=== PATIENT | female | born 1965 | race Caucasian/White ===

== ENCOUNTER 2023-06-19 01:58 | Emergency (ER) | payer OTHER, SELFPAY ==
[2023-06-19 02:12] VITALS: BP 163/98; PULSE 81; TEMP 37; O2SAT 98; BMI 22.7
--- NOTE | 2023-06-19 02:46 | ED_ITS ---
HPI HPI - General Adult General Chief complaint: Headache Stated complaint: HEADACHE Time Seen by Provider: 06/19/23 02:40 Source: patient Mode of arrival: walk-in History of Present Illness HPI narrative: presents complaining of migraine. Similar to past migraine. pain behind the right eye. nauseated but has not vomited. no abdominal pain. Neck is sore but not stiff. No paresthesia Related Data Home Medications ?Medication ?Instructions ?Recorded ?Confirmed hyoscyamine 0.15 mg tablet mg PO QID PRN dyspepsia 06/19/23 minocycline 100 mg capsule 100 mg PO DAILY PRN infection 06/19/23 06/19/23 simvastatin 20 mg tablet 20 mg PO QPM 06/19/23 06/19/23 Allergies Allergy/AdvReac Type Severity Reaction Status Date / Time eluxadoline [From Viberzi] Allergy Mild Nausea Verified 06/19/23 02:22 levofloxacin Allergy Mild Hallucinati Verified 06/19/23 02:22 ng sulfamethoxazole Allergy Mild Hives Verified 06/19/23 02:22 [From Bactrim] tramadol Allergy Mild Palpitation Verified 06/19/23 02:22 s trimethoprim [From Bactrim] Allergy Mild Hives Verified 06/19/23 02:22 Opioid HPI Opioid Management Most Recent Opioid Data: No Data to Display Review of Systems ROS Status of ROS 10 or more systems reviewed and unremark able except as noted in history and below Exam Constitutional Vital Signs, click to edit/add: Last Vital Signs Temp 98.6 F 06/19/23 02:12 Pulse 81 06/19/23 02:12 Resp 16 06/19/23 02:12 BP 163/98 H 06/19/23 02:12 Pulse Ox 98 06/19/23 02:12 O2 Del Method Room Air 06/19/23 02:12 Common normals: no apparent distress, average body habitus, oriented x3, no limitations, healthy appearing, alert and well nourished [facility] Common normals: normocephalic and head/scalp atraumatic Eye Common normals: PERRL, EOMs intact bilaterally and conjunctivae normal Respiratory Common normals: normal respiratory effort, no retractions, no use of accessory muscles and clear to auscultation bilaterally Cardio Common normals: regular rate, regular rhythm, S1 normal heart sound and S2 normal heart sound GI Common normals: Normal to inspection, nondistended, normoactive bowel sounds present, soft to palpation and non-tender Extremity Common normals: normal to inspection and full ROM Neuro Common normals: oriented x3, CN's II-XII intact bilaterally, moves all extremities and no focal motor deficits Psych Appearance: grossly normal Course Vital Signs Vital signs: Vital Signs Temperature 98.6 F 06/19/23 02:12 Pulse Rate 81 06/19/23 02:12 Respiratory Rate 16 06/19/23 02:12 Blood Pressure 163/98 H 06/19/23 02:12 Pulse Oximetry 98 06/19/23 02:12 Oxygen Delivery Method Room Air 06/19/23 02:12 Temperature 98.6 F 06/19/23 02:12 Pulse Rate 81 06/19/23 02:12 Respiratory Rate 16 06/19/23 02:12 Blood Pressure 163/98 H 06/19/23 02:12 Pulse Oximetry 98 06/19/23 02:12 Oxygen Delivery Method Room Air 06/19/23 02:12 Medical Decision Making MDM Narrative Medical decision making narrative: patient presents with migraine headache. Starting to feel better after treatment. Will continue to observe and she will likely be discharged in the next 1/2 as she continue to improve. patient's states the patient was confused and would ask same question. Patient in no distress. No focal neuro findings. CTbrain ordered due to her husbands concerns. CT brain neg. Patient re examined and headache improved. she is AxOx4. 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 Husbands wants her to rest at home today and is requesting work note. Transient confusion likely side effect of Reglan Discharge Plan Discharge Stand Alone Forms: Portal Instructions Chief Complaint: Headache Clinical Impression: Migraine Patient Disposition: Home, Self-Care Prescriptions / Home Meds: No Action minocycline 100 mg capsule 100 mg PO DAILY PRN (Reason: infection) simvastatin 20 mg tablet 20 mg PO QPM hyoscyamine 0.15 mg tablet PO QID PRN (Reason: dyspepsia) Print Language: Irish Instructions: Migraine Headache (ED) Referrals: Cosme Roth MD [Primary Care Provider] - 1 week
[2023-06-19] MEDS: METOCLOPRAMIDE HCL 10 MG/2 ML VIAL IVP (03:17)
[2023-06-19] MEDS: DIPHENHYDRAMINE HCL 50 MG/ML (1ML) VIAL IV (03:17)
[2023-06-19] MEDS: METHYLPREDNISOLONE SOD SUCC PF 125 MG/2 ML VIAL IVP (03:17)
--- NOTE | 2023-06-19 04:36 | CT_ITS ---
The [address] [address] Patient Name: ELSIE FRANCISCO MRN: [id number] date: 1965 Sex: F Assigned Patient Location: ER Current Patient Location: ER Accession/Order Number: [id number] Exam Date: 06/19/2023 04:47 Report Date: 06/19/2023 05:11 At the request of: JANNET BOBO Procedure: CT head/brain wo con INDICATION: 58 years old; Female. Headache. History of migraines. New-onset of headache since 5:00 PM yesterday. Right eye scotoma. Nausea. Acute short-term memory loss after medication for 30 minutes. TECHNIQUE: CT Head (ax/cor/sag reformats). Ionizing radiation dose reduced via iterative reconstruction/FBP blend and body size kV/mA adjustment. Comparison: None FINDINGS: POSTOPERATIVE CHANGES: None. BRAIN PARENCHYMA: No intraparenchymal or extra-axial hemorrhage. No mass effect. No midline shift or herniation. Normal blake/white differentiation. VENTRICLES/EXTRA-AXIAL SPACES: Normal for patient's age. SINUSES/MASTOIDS: Lacelike secretions are present within the frontal sinus on the left. Remaining visualized sinuses are clear although the ethmoid and maxillary sinuses are not completely included. Mastoids and middle ears are clear. MSK: No displaced or depressed calvarial fracture. OTHER: No hyperdense intraluminal thrombus. CT/CT head/brain wo con IMPRESSION: 1. No acute intracranial abnormality. No hemorrhage or mass effect. If there is continued suspicion for the presence of intracranial pathology, recommend further evaluation with MRI including diffusion imaging. Electronically authenticated by: LENO CHANG Date: 06/19/2023 05:11
--- NOTE | 2023-06-19 04:41 | PC.NURSE ---
This nurse went into check on pt, per pt keeps repeating herself and asking why are we? , I have a headache , and I don't have insurance . Physician notified, CT of head ordered at this time. and pt updated at this time.
[2023-06-19 05:49] VITALS: BP 128/64; PULSE 72; O2SAT 99
== END 2023-06-19 05:51 | disposition home or self-care (01) ==
PROVIDERS: Emergency Provider Internal Medicine; PCP Family Medicine
DX: G43.909 Migraine, unspecified, not intractable, without status migrainosus (principal); R41.0 Disorientation, unspecified
CPT/HCPCS: 70450; 96374; 96375; 99284; J2919

== ENCOUNTER 2023-07-07 07:46 | Outpatient (OUT) | payer OTHER, SELFPAY ==
--- OUTSIDE RECORDS SUMMARY | 2023-07-07 07:50 | XMS_ITS ---
Patient Summarization (C-CDA 2.1 CCD) Created on: July 07, 2023 ANAMARIAUNRULYSHAYE Montanez : 1965 Sex: Female Author Organization Sample organization Care Team Providers Care Car Repair Supervisor Name Role Phone KIARA, JEISON Unavailable Unavailable KIARA, JEISON Unavailable Unavailable HOY, TYRONE Unavailable Unavailable KIARA, JEISON Unavailable Unavailable KIARA, JEISON Unavailable Unavailable HOY, TYRONE Unavailable Unavailable HOY, DR HANSEN Admitting Unavailable HOY, DR HANSEN Attending Unavailable HOY, DR HANSEN Primary Care Unavailable HOY, DR HANSEN Consulting Unavailable WEST, DR SONYA Beth Consulting Unavailable HOY, DR HANSEN Admitting Unavailable HOY, DR HANSEN Attending Unavailable HOY, DR HANSEN Primary Care Unavailable HOY, DR HANSEN Consulting Unavailable WEST, DR SONYA Beth Consulting Unavailable HOY, DR HANSEN Admitting Unavailable HOY, DR HANSEN Attending Unavailable HOY, DR HANSEN Primary Care Unavailable HOY, DR HANSEN Consulting Unavailable ZIEBER, DR BEN Beasley Consulting Unavailable HOY, DR HANSEN Admitting Unavailable HOY, DR HANSEN Attending Unavailable HOY, DR HANSEN Primary Care Unavailable HOY, DR HANSEN Consulting Unavailable ZIEBER, DR BEN Beasley Consulting Unavailable HOY, DR HANSEN Admitting Unavailable HOY, DR HANSEN Attending Unavailable HOY, DR HANSEN Primary Care Unavailable HOY, DR HANSEN Consulting Unavailable WEST, DR SONYA Beth Consulting Unavailable Sonya Palomo Unavailable Nelson Vann Unavailable JAMIA DELEON Attending Unavailable JAMIA DELEON Referring Unavailable Allergies Allergy Classification Reported Allergen(s) Allergy Type Date of Onset Reaction(s) Facility (2 sources) Iodine; Translations: [iodine] Drug Allergy 09-08-19 15 [facility] Repository (8 sources) levoFLOXacin; Translations: [levoFLOXacin] Drug Allergy AO, [facility] Repository (2 sources) Sulfamethoxazole / Trimethoprim; Translations: [Bactrim] Drug Allergy 01-15-20 [facility] Repository (7 sources) Sulfamethoxazole / Trimethoprim Drug Allergy Unknown [facility] Other Encounters Encounter Date Encounter Type Care Provider Facility Start: 01-16-2023 End: 01-17-2023 ambulatory JAMIA JASONO Not Available Start: 01-12-2023 End: 01-13-2023 ambulatory JAMIA Mckeon FLORO Not Available Start: 11-22-2021 End: 11-22-2021 ambulatory Sonya Palomo Other [facility] Other Start: 11-22-2021 Telephone encounter Sonya Palomo [facility] Start: 04-23-2021 End: 04-24-[address] TYRONE GEORGE Facility:[facility] Start: 04-21-2021 End: 04-21-2021 ambulatory Sonya Palomo Other [facility] Other Start: 04-21-2021 Telephone encounter Sonya Palomo [facility] Start: 04-07-2021 End: 04-08-[address] TYRONE GEORGE Facility:[facility] Start: 01-28-2021 End: 01-28-2021 ambulatory Sonya Palomo Other [facility] Other Start: 01-28-2021 Telephone encounter Sonya Palomo [facility] Start: 01-07-2021 End: 01-07-2021 ambulatory Sonya Palomo Other [facility] Other Start: 01-07-2021 Telephone encounter Sonya Paizkes [facility] Start: 12-28-2020 End: 12-28-2020 ambulatory Sonya Palomo Other [facility] Other Start: 12-28-2020 Telephone encounter Sonya Hykes [facility] Start: 12-16-2020 End: 12-16-2020 ambulatory Sonya Palomo Other [facility] Other Start: 12-16-2020 Office outpatient visit 25 minutes Sonya Paizirineo [facility] Start: 09-19-2020 End: 09-20-[address] TYRONE GEORGE Facility:[facility] Start: 08-13-2020 End: 08-14-[address] TYRONE GEORGE Facility:[facility] Start: 08-05-2020 Encounter for genera l adult medical examination without abnormal findings DR TYRONE GEORGE [facility] Start: 07-31-2020 End: 08-01-[address] TYRONE GEORGE Facility:[facility] Start: 07-31-2020 End: 08-01-2020 Encounter for general adult medical examination without abnormal findings DR TYRONE GEORGE Facility:[facility] Start: 12-06-2017 End: 12-06-2017 Patient encounter procedure [facility] Facility:[facility] Start: 11-14-2017 End: 11-16-2017 Patient encounter procedure JEISON PACE Facility:[facility] Medications Current Medications Medication Drug Class(es) Dates Sig (Normalized) Sig (Original) amylase 287880 unt / lipase 69376 unt / protease 850448 unt delayed release oral capsule (6 sources) Start: 12-29-2020 take 2 capsules by mouth three times daily at mealtime Zenpep 28095-091989 UNIT 2 CAPSULES Orally THREE TIMES A DAY WITH MEALS for 90 days Dec, Active chlordiazePOXIDE hydrochloride 5 mg / clidinium bromide 2.5 mg oral capsule (4 sources) Anticholinergic, Benzodiazepine Start: 01-28-2021 take 1 capsule by mouth every twelve hours Librax 5-2.5 MG 1 CAPSULE Orally TWICE A DAY for 30 day(s) Jan, Active dicyclomine hydrochloride 20 mg oral tablet (7 sources) Anticholinergic Start: 11-12-2020 take 1 tablet by mouth every twelve hours Dicyclomine HCl 20 MG 1 tablet Orally TWICE A DAY for 30 day(s) Nov, Active minocycline 100 mg oral capsule (7 sources) Tetracycline-class Drug take 1 capsule by mouth every twelve hours as needed Minocycline HCl 100 MG 1 capsule Orally every 12 hrs PRN Active predniSONE 20 mg oral tablet (7 sources) Start: 12-16-2020 take 1 tablet by mouth every twenty-four hours predniSONE 20 MG 1 tablet Orally Once a day for 14 day(s) Dec, Active simvastatin 20 mg oral tablet (7 sources) HMG-CoA Reductase Inhibitor take 1 tablet by mouth every twenty-four hours Simvastatin 20 MG 1 tablet in the evening Orally Once a day Active Completed/Discontinued Medications Medication Drug Class(es) Dates Sig (Normalized) Sig (Original) 12 hr hyoscyamine sulfate 0.375 mg extended release oral tablet (14 sources) Start: 10-21-2020 take 1 tablet by mouth every twelve hours Hyoscyamine Sulfate ER 0.375 MG 1 tablet Orally every 12 hrs for 30 day(s) Oct, Not-Taking Hyoscyamine Sulf ate 0.125 MG 1 tablet under the tongue and allow to dissolve as needed Sublingual PRN Not-Taking Payers Date Payer Category Payer Private Health Insurance [id number] 2017 Self-pay [employer] 2017 Unknown [id number] 1965 Unknown [id number] 2.16.84 [id number] 1965 Unknown [id number] 2.16.84 [id number] 1965 Unknown [id number] 2.16.84 [id number] 1965 Unknown [id number] 2.16.84 [id number] 1965 Unknown [id number] 2.16.84 [id number] 1965 Unknown [id number] 2.16.840 .[id number] 1965 Unknown [id number] 2.16.840 .[id number] 1965 Unknown [id number] 2.16.84 [id number] 1965 Unknown [id number] 2.16.84 [id number] 1960 Private Health Insurance [id number] Problems Active Problems Problem Classification Problem Date Documented Da te Episodic/Chronic Diverticulosis and diverticulitis (7 sources) Diverticulitis; Translations: [Diverticulitis of intestine, part unspecified, without perforation or abscess without bleeding] Chronic Other gastrointestinal disorders (7 sources) Irritable bowel syndrome with diarrhea; Translations: [Irritable bowel syndrome with diarrhea] Chronic Other gastrointestinal disorders (7 sources) Irritable bowel syndrome; Translations: [Irritable bowel syndrome without diarrhea] Chronic Other gastrointestinal disorders (1 source) Irritable bowel syndrome with diarrhea Onset: 12-16-2020 Resolved: 12-16-2020 Chronic Other gastrointestinal disorders (7 sources) Incontinence of feces; Translations: [Full incontinence of feces] Episodic Spondylosis; intervertebral disc disorders; other back problems (1 source) Other cervical disc degeneration, unspecified cervical region; Translations: [OTH CERV DISC DEGENERATION UNS CERV] Onset: 04-28-2021 Chronic Spondylosis; intervertebral disc disorders; other back problems (5 sources) Radiculopathy, cervical region; Translations: [Cervicalgia] Onset: 04-23-2021 Episodic Past or Other Problems Problem Classification Problem Date Documented Da te Episodic/Chronic Abdominal pain (6 sources) Left upper quadrant pain; Translations: [Right upper quadrant pain] Onset: 08-05-2020 Resolved: 12-16-2020 Episodic Other gastrointestinal disorders (1 source) Full incontinence of feces Onset: 12-16-2020 Resolved: 12-16-2020 Episodic Other lower respiratory disease (4 sources) Dyspnea, unspecified; Translations: [DYSPNEA UNSPECIFIED] Onset: 08-13-2020 Episodic Results Test Name Value Interpretation Reference Range Facility BI MAMMOGRAM SCREENING TOMOS RICHARD BILATERALon 01-16-2023 BI MAMMOGRAM SCREENING TOMOSYNTHESIS BILATERAL This is a summary report. The complete report is available in the patient's medical record. If you cannot access the medical record, please contact the sending organization for a detailed fax or copy. EXAMINATION: BI MAMMOGRAM SCREENING TOMOSYNTHESIS BILATERAL CLINICAL HISTORY: breast cancer screening COMPARISON: There are no previous mammograms available for comparison. RESULT: Digital mammography and 3D tomosynthesis of bilateral breasts was performed. There are scattered areas of fibroglandular density. There is no suspicious mass, asymmetry, architectural distortion, or calcification. Left central breast posterior depth biopsy clips. Typically benign calcifications. IMPRESSION: BIRADS 2 - Benign. Follow-up: Routine Screening Mamm . Board Certified Radiologists. Accredited by the ACR and FDA. MAMMOGRAPHY IS VERY IMPORTANT TO YOUR HEALTH. THE [place] [employer] GUIDELINES RECOMMEND THAT WOMEN 40 YEARS OF AGE AND OLDER SHOULD HAVE A MAMMOGRAM EVERY YEAR. A REMINDER LETTER WILL BE SENT AT THE APPROPRIATE TIME. THIS FACILITY UTILIZES A REMINDER SYSTEM TO ENSURE ALL PATIENTS RECEIVE REMINDER NOTIFICATIONS AT THE APPROPRIATE TIME BASED ON THE RECOMMENDATIONS OF THIS EXAM. THIS INCLUDES REMINDERS FOR ROUTINE SCREENING MAMMOGRAMS, DIAGNOSTIC MAMMOGRAMS IN WHICH THE PATIENT IS ASKED TO RETURN FOR ADDITIONAL VIEWS, OR OTHER BREAST IMAGING INTERVENTIONS WHEN APPROPRIATE. THE PATIENT WILL BE PLACED IN THE APPROPRIATE REMINDER SYSTEM INCLUDING A REMINDER AT THE APPROPRIATE TIME FOR ANY PENDING ADDITIONAL VIEWS. TRANSCRIBED BY: ELECTRONICALLY SIGNED BY: Cristobal Maxwell MD Normal Not Available MRI CSPINE WO CONon 04-24-19 MRI CSPINE WO CON EXAMINATION: MRI CSP INE WO CON HISTORY: Cervical radiculopathy COMPARISON: 04/07/2021 plain x-ray TECHNIQUE: A variety of imaging planes and parameters were utilized for visualization of suspected pathology. FINDINGS: CRANIOCERVICAL AREA: Normal foramen magnum with no Chiari malformation. PARASPINAL AREA: Normal with no visible mass. BONES: Normal alignment with no acute fracture or spondylolisthesis. No bone edema. Motion artifact does limit the exam. CORD: Normal caliber, contour, and signal intensity. CERVICAL DISC LEVELS: C2-C3: No significant disc/facet abnormality, spinal stenosis, or foraminal stenosis. C3-C4: No significant disc/facet abnormality, spinal stenosis, or foraminal stenosis. C4-C5: Early degenerative disc disease is present without focal protrusion or neural impingement. C5-C6: Disc space narrowing and disc desiccation. Moderate right foraminal disc/osteophyte complex best seen on axial image 19, sagittal image #10. No central canal or left foraminal stenosis. Mild narrowing of the inferior right foramen C6-C7: No significant disc/facet abnormality, spinal stenosis, or foraminal stenosis. C7-T1:. No significant disc/facet abnormality, spinal stenosis, or foraminal stenosis. IMPRESSION: Degenerative changes C5-C6 with mild narrowing of the right neural foramen Electronically authenticated by: SONYA BILLINGS Date: 2021-04-23 14:24 Normal [facility] XR CSPINE MIN 4 VIEWSon 03 XR CSPINE MIN 4 VIEWS EXAMINATION: XR CSPINE MIN 4 VIEWS HISTORY: Cervical radiculopathy ; chronic posterior neck pain COMPARISON: No relevant comparison available. FINDINGS: BONES: Slight reversal of the normal lordotic curvature involving the mid cervical spine. No fracture or significant spondylolisthesis. Mild degenerative facet arthropathy C3-4 through C6-7 bilaterally. DISC SPACES: Mild narrowing C5-6. PARASPINOUS: Negative. No paraspinous abnormality is seen. OTHER: Negative. IMPRESSION: 1. Multilevel mild degenerative changes. Consider MRI for further evaluation. Electronically authenticated by: BEN GALLAGHER Date: 2021-04-07 17:36 Normal [facility] 11-05-2020 L ------- Specimen: [id number] Received: 11/05/20 Status: PING Martinez Num: [id number] Spec Type: Surgical Subm Dr: Sonya Palomo Jr, DO Tissues: A Colon Biopsy (RANDOM COLON) Procedures: HE Stain/2, Gross/Micro L4 Patient Age/Sex Location Account Attending Physician Shaye Grimaldo 55/F [id number] Sonya Palomo Jr, DO SPEC NUM: [id number] RECD: 11/05/20 STATUS: PING MARTINEZ NUM: [id number] MEL: 11/05/20- [facility] DR: Sonya Palomo Jr, DO ENTERED: 11/05/20 [facility] DR: GUS TYPE: Surgical DEPT: S ENTERED BY: [id number] RECV BY: [id number] ORDERED: HE Stain/2, Gross/Micro L4 ORDERED: HE Stain/2, Gross/Micro L4 Pathological Diagnosis Colon, random biopsy: - Benign colonic mucosa with lymphoid aggregate and no significant histopathology. - No microscopic colitis, cryptitis or granulomas identified. Clinical Information Fecal incontinence, diarrhea Gross Description Received in formalin labeled with the patient's name, number and random colon rule out microscopic colitis is a 0.4 cm amos tissue fragment. Entirely submitted in one cassette labeled A1. (/) Microscopic Description Two glass slides with H E stained material have been examined. The microscopic findings support the above pathologic diagnosis. CPT Codes 58569 Specimen: [id number] Received: 11/05/20 Status: PING Martinez Num: [id number] Spec Type: Surgical Subm Dr: Sonya Palomo Jr, DO Tissues: A Colon Biopsy (RANDOM COLON) Procedures: HE Stain/2, Gross/Micro L4 Patient: Shaye Grimaldo [id number] (Continued) Signed (signature on file) Marcos Bennett MD 11/06/20 [facility] COVID-19 Antigenon 1 COVID-19 Antigen Healthcare Worker?: N Brynn Reference Brynn Reference Negative SARS-CoV+SARS-CoV-2 (COVID-19) Ag [Presence] in Respiratory specimen by Rapid immunoassay Negative for SARS Antigen by ÓSCAR COVID19 Blank Space Brynn Disclaimer Negative results, from patients with symptom Brynn Disclaimer onset beyond five days, should be treated as Brynn Disclaimer presumptive and confirmation with a molecular Brynn Disclaimer assay, if necessary, for patient management, Brynn Disclaimer may be performed. Negative results do not rule Brynn Disclaimer out COVID-19 and should not be used as the sole Brynn Disclaimer basis for treatment or patient management Brynn Disclaimer decisions, including infection control decisions. Brynn Disclaimer Negative results should be considered in the Brynn Disclaimer context of a patient's recent exposures, history Brynn Disclaimer and the presence of clinical signs and symptoms Brynn Disclaimer consistent with COVID-19. COVID19 Blank Space Brynn Disclaimer The Brynn SARS Antigen ÓSCAR does not differentiate Brynn Disclaimer between SARS-CoV and SARS-CoV-2. COVID19 Blank Space Brynn Disclaimer This test was developed and its performance Brynn Disclaimer characteristic determined by [email or web address] and Brynn Disclaimer validated at [facility]. This Brynn Disclaimer test has not been FDA cleared or approved. This Brynn Disclaimer test has been authorized by FDA under an Emergency Use Brynn Disclaimer Authorization (EUA). This test has been validated Brynn Disclaimer in accordance with the FDA's Guidance Document (Policy Brynn Disclaimer for Diagnostics Testing in Laboratories Certified to Brynn Disclaimer Perform High Complexity Testing under CLIA prior to Brynn Disclaimer Emergency Use Authorization for Coronavirus Brynn Disclaimer isease-2019 during the Public Health Emergency) Brynn Disclaimer issued on May 09, 2019. This test is only authorized Brynn Disclaimer for the duration of time the declaration that Brynn Disclaimer circumstances exist justifying the authorization of Brynn Disclaimer the emergency use of in vitro diagnostic tests for Brynn Disclaimer detection of SARS-CoV-2 virus and/or diagnosis of Brynn Disclaimer COVID-19 infection under section 564(b)(1) of the Brynn Disclaimer Act, 21 U.S.C. 360bbb-3(b)(1), unless the Brynn Disclaimer authorization is terminated or revoked sooner. PERFORMED BY: [place] [address] PATHOLOGIST INTERVIEWING CLERK NORMA FRAGA M.D. Normal [facility] Comment on above: Performed By: #### S FAVIAN WASHINGTONID-19 BRYNN #### [address] Brynn Ag Negativeon 11-04-19 21 Brynn Ag Negative Negative Normal Negative [facility] Comment on above: Result Comment: This is a duplicate Brynn SARS Antigen (ÓSCAR) result to be used for statistical tracking purpose only. PERFORMED BY: [place] [address] PATHOLOGIST INTERVIEWING CLERK NORMA FRAGA M.D. Performed By: #### S OFPAMELA COVID-19 BRYNN #### [address] ABD/PELV WO W CONon 09-21 CT ABD/PELV WO W CON EXAMINATION: CT ABD/PELV WO W CON HISTORY: Left upper quadrant pain , left lower quadrant pain, rectal incontinence COMPARISON: No relevant comparison available. TECHNIQUE: Axial, Coronal, and Sagittal images were created without and with IV contrast. Dose reduction techniques were achieved by using automated exposure control and/or adjustment of mA and/or kV according to patient size and/or use of iterative reconstruction technique. FINDINGS: LUNG BASES: No visible pulmonary or pleural disease. LIVER: No enlargement, atrophy, abnormal density, or significant focal lesion. BILIARY: No dilatation or calcification. PANCREAS: No lesion, fluid collection, ductal dilatation, or atrophy. SPLEEN: No enlargement or focal lesion. ADRENALS: No mass or enlargement. KIDNEYS: No mass, obstruction, or calcification. BOWEL/MESENTERY: Mild diverticulosis of the distal colon without acute inflammatory changes. No visible mass, obstruction, or bowel wall thickening. AORTA/VASCULAR: No aneurysm or dissection. RETROPERITONEUM: No mass or adenopathy. LYMPH NODES: No adenopathy. URINARY BLADDER: No visible focal wall thickening, lesion, or calculus. PELVIC ORGANS: No visible mass. Pelvic organs appropriate for patient age. ABDOMINAL WALL: No mass or hernia. BONES: No bony lesion or fracture. OTHER: Negative. IMPRESSION: 1. No appreciable abnormality to account for the patient's symptoms. 2. Mild colonic diverticulosis without acute diverticulitis. Electronically authenticated by: BEN GALLAGHER Date: 2020-09-21 08:15 Normal [facility] NM STRESS/REST MULTIon 08-13 NM STRESS/REST MULTI Patient: SHAYE GRIMALDO Exam Date: 08/13/2020 : 1965 Gender:F Ordering : DR TYRONE GEORGE . Admission #: [id number] Family : Order #: [id number] CLICK HERE TO VIEW EXAM RADIOLOGY REPORT PROCEDURE: RADIONUCLIDE IMAGING STRESS/REST MULTI COMPARISON: None. INDICATIONS: Dyspnea TECHNIQUE: Exam Description: Stress/Rest one day protocol gated SPECT Rest Imagin.8 mCi Tc-99m Cardiolite IV on 08/13/2020 Stress Imaging 29.5 mCi Tc-99m Cardiolite IV on 08/13/2020 Exercise Protocol: Nelson Heart Rate (bpm): Rest: 79 Max: 140 PMHR: 85 Blood Pressure: Rest: 136/84 Max: 178/88 Exercise Time: Minutes: 7 Seconds: 00 Stage Reached: Stage: 3 Mets 7.0 Symptoms: Rest and peak stress ECG findings were normal and the exercise portion of the study was normal per attending physician Dr. Kenny Keys . For more details please see separate cardiac stress test report. FINDINGS: QUALITY OF STUDY: Excellent. PERFUSION DEFECT: None. LOCATION: N/A SIZE: N/A. SEVERITY: N/A. TYPE: N/A. WALL MOTION: LV SIZE: Normal. 38 mL. TID / TCD: None; 0.9 LVEF: Normal. Calculated EF 93%. SUMMARY: Myocardial perfusion imaging study is NORMAL. CONCLUSION: 1. Normal myocardial perfusion scan 2. Normal exercise test Dictated by: Sonya Billings MD on 08/13/2020 at 15:35 Approved by: Sonya Billings MD on 08/13/2020 at 15:36 Normal [facility] INSULINon 08-01-2020 Insulin 13.3 uIU/mL Normal 2.6-24.9 [facility] Comment on above: Performed By: #### T SH, T7, LIPID, CMP #### [facility] [address] [place] [address] Randellranjit Martinez CBC AUTO DIFFon 07-31-2020 BASO # 0.1 103/ul Normal 0.0-0.1 [facility] Comment on above: Performed By: #### T SH, T7, LIPID, CMP #### [facility] [address] [place] [address] Randellranjit Martinez Basophils/100 WBC (Bld) 1.2 % Normal 0.2-2.0 [facility] Comment on above: Performed By: #### T SH, T7, LIPID, CMP #### [facility] [address] [place] [address] Randell Michelle EO # 0.2 103/ul Normal 0.0-0.7 [facility] Comment on above: Performed By: #### T SH, T7, LIPID, CMP #### [facility] [address] [place] [address] Randellranjit Martinez Eosinophils/100 WBC (Bld) 2.5 % Normal 0.9-7.0 [facility] Comment on above: Performed By: #### T SH, T7, LIPID, CMP #### [facility] [address] [place] [address] Randellranjit Martinez Erythrocyte distribution width (RBC) [Ratio] 12.0 % Normal 11.0-15.0 [facility] Comment on above: Performed By: #### T SH, T7, LIPID, CMP #### [facility] [address] [place] [address] Randellranjit Martinez Hematocrit (Bld) [Volume fraction] 41.4 % Normal 36.0-48.0 [facility] Comment on above: Performed By: #### T SH, T7, LIPID, CMP #### [facility] [address] [place] [address] Randell Michelle Hemoglobin (Bld) [Mass/Vol] 13.6 g/dL Normal 12.0-16.0 [facility] Comment on above: Performed By: #### T SH, T7, LIPID, CMP #### [facility] [address] [address] Randell Michelle IG # 0.02 10e3/ul Normal 0.00-0.03 [facility] Comment on above: Performed By: #### T SH, T7, LIPID, CMP #### [facility] [address] [address] Randell Michelle IG % 0.3 % Normal 0.0-0.5 [facility] Comment on above: Performed By: #### T SH, T7, LIPID, CMP #### [facility] [address] [place] [address] Randell Michelle LYMPH # 1.9 103/ul Normal 1.2-3.8 [facility] Comment on above: Performed By: #### T SH, T7, LIPID, CMP #### [facility] [address] [place] [address] Randell Michelle Lymphocytes/100 WBC (Bld) 27.9 % Normal 20.5-60.0 [facility] Comment on above: Performed By: #### T SH, T7, LIPID, CMP #### [facility] [address] [place] [address] Randellranjit Martinez MANUAL DIFF REQ NO Normal [facility] Comment on above: Performed By: #### T SH, T7, LIPID, CMP #### [facility] [address] [place] [address] Randellranjit Peñaen MCH (RBC) [Entitic mass] 30.8 pg Normal 26.7-34.0 [facility] Comment on above: Performed By: #### T SH, T7, LIPID, CMP #### [facility] [address] [place] [address] Randellranjit Martinez MCHC (RBC) [Mass/Vol] 32.9 g/dL Normal 29.9-35.2 [facility] Comment on above: Performed By: #### T SH, T7, LIPID, CMP #### [facility] [address] [place] [address] Randellranjit Martinez MCV (RBC) [Entitic vol] 93.7 fL Normal 81.0-99.0 [facility] Comment on above: Performed By: #### T SH, T7, LIPID, CMP #### [facility] [address] [place] [address] Randell Michelle MONO # 0.7 103/ul Normal 0.3-0.8 [facility] [facility] Comment on above: Performed By: #### T SH, T7, LIPID, CMP #### [facility] [address] [place] [address] Randell Michelle Monocytes/100 WBC (Bld) 10.7 % Normal 1.7-12.0 [facility] Comment on above: Performed By: #### T SH, T7, LIPID, CMP #### [facility] [address] [place] [address] Randell Michelle NEUT # 3.9 103/ul Normal 1.4-6.5 [facility] Comment on above: Performed By: #### T SH, T7, LIPID, CMP #### [facility] [address] [place] [address] Randell Michelle Neutrophils/100 WBC (Bld) 57.4 % Normal 43.0-75.0 [facility] Comment on above: Performed By: #### T SH, T7, LIPID, CMP #### [facility] [address] [place] [address] Randell Michelle Platelet mean volume (Bld) [Entitic vol] 10.4 fL Normal 9.5-13.5 [facility] Comment on above: Performed By: #### T SH, T7, LIPID, CMP #### [facility] [address] [place] [address] Randell Michelle PLT 258 103/ul Normal 150-450 [facility] Comment on above: Performed By: #### T SH, T7, LIPID, CMP #### [facility] [address] [place] [address] Randell Michelle RBC 4.42 106/ul Normal 4.20-5.40 [facility] Comment on above: Performed By: #### T SH, T7, LIPID, CMP #### [facility] [address] [place] [address] Randell Michelle WBC 6.8 103/ul Normal 4.0-11.0 [facility] Comment on above: Performed By: #### T SH, T7, LIPID, CMP #### [facility] [address] [address] Randell Martinez FREE THYROXINE INDEX T7on FTI 2.35 Normal [facility] Comment on above: Performed By: #### T SH, T7, LIPID, CMP #### [facility] [address] [address] Randell Martinez T3U 35.0 % Normal 23.5-40.5 [facility] Comment on above: Performed By: #### T SH, T7, LIPID, CMP #### [facility] [address] [address] Randell Martinez T4 [Mass/Vol] 6.70 ug/dL Normal 5.53-11.00 [facility] Comment on above: Performed By: #### T SH, T7, LIPID, CMP #### [facility] [address] [address] Ranedll Martinez GLYCOHEMOGLOBIN A1Con 2020 ADA RECOMMENDATION ADA THERAPEUTIC TARG ET 6.0 - 7.0 ACTION SUGGESTED > 7.0 Normal [facility] Comment on above: Performed By: #### A 1C #### [facility] [address] [place] [address] Randell Michelle Glucose [Mass/Vol] 114 mg/dL Normal [facility] Comment on above: Performed By: #### A 1C #### [facility] [address] [address] Randell Michelle HbA1c (Bld) [Mass fraction] 5.6 % Normal <=6.0 [facility] Comment on above: Performed By: #### A 1C #### [facility] [address] [address] Randellranjit Martinez IRONon 07-31-2020 Iron [Mass/Vol] 120.0 ug/dL Normal 37.0-170.0 [facility] Comment on above: Performed By: #### T SH, T7, LIPID, CMP #### [facility] [address] [id number] Randell Michelle LIPID PROFILEon 07-31-2020 CHOL-HDL RATIO NORM SEE BELOW Normal [facility] Comment on above: Result Comment: 3.3 - 4.4 LOW RISK 4.4 - 7.1 AVERAGE RISK 7.1 - 11.0 MODERATE RISK >11.0 HIGH RISK Performed By: #### T DANDRE, T7, LIPID, CMP #### [facility] [address] [address] Randell Michelle Cholesterol [Mass/Vol] 301 mg/dL Critically high <=200 [facility] Comment on above: Performed By: #### T DANDRE, T7, LIPID, CMP #### [facility] [address] [address] Randell Michelle Cholesterol in HDL [Mass/Vol] 65 mg/dL Normal [facility] Comment on above: Performed By: #### T DANDRE, T7, LIPID, CMP #### [facility] [address] [address] Randell Michelle Cholesterol in LDL [Mass/Vol] 209.0 mg/dL Normal [facility] Comment on above: Performed By: #### T DANDRE, T7, LIPID, CMP #### [facility] [address] [id number] Randell Michelle Cholesterol.total/ Cholesterol in HDL [Mass ratio] 4.6 {ratio} Normal [facility] Comment on above: Performed By: #### T DANDRE, T7, LIPID, CMP #### [facility] [address] [address] Randell Michelle HDL NORMAL > or = 60 mg/dl - LO W CARDIOVASCULAR RISK <40 mg/dl - HIGH CARDIOVASCULAR RISK Normal [facility] Comment on above: Performed By: #### T SH, T7, LIPID, CMP #### [facility] [address] [place] [address] Randell Michelle LDL CALC NORMAL SEE BELOW Normal [facility] Comment on above: Result Comment: <100 mg/dl OPTIMAL 100 - 129 mg/dl NEAR OR ABOVE OPTIMAL 130 - 159 mg/dl BORDERLINE HIGH 160 - 189 mg/dl HIGH >190 mg/dl VERY HIGH Performed By: #### T DANDRE, T7, LIPID, CMP #### [facility] [address] [place] [address] Randell Michelle Triglyceride [Mass/Vol] 135 mg/dL Normal <=150 [facility] Comment on above: Performed By: #### T DANDRE, T7, LIPID, CMP #### [facility] [address] [place] [address] Randell Michelle VLDL CALC 27.0 mg/dL Normal [facility] Comment on above: Performed By: #### T DANDRE, T7, LIPID, CMP #### [facility] [address] [place] [address] Randellranjit Peñaen PROF 14(COMP METB)on 021 Albumin [Mass/Vol] 3.9 g/dL Normal 3.5-5.0 [facility] Comment on above: Performed By: #### T DANDRE, T7, LIPID, CMP #### [facility] [address] [place] [address] Randell Michelle Albumin/Globulin [Mass ratio] 1.1 {ratio} Normal [facility] Comment on above: Performed By: #### T DANDRE, T7, LIPID, CMP #### [facility] [address] [place] [address] Randell Michelle ALP [Catalytic activity/Vol] 99 U/L Normal 38-126 [facility] Comment on above: Performed By: #### T DANDRE, T7, LIPID, CMP #### [facility] [address] [place] [address] Randell Michelle ALT [Catalytic activity/Vol] 20 U/L Normal 9-52 [facility] Comment on above: Performed By: #### T DANDRE, T7, LIPID, CMP #### [facility] [address] [place] [address] Randell Michelle Anion gap [Moles/Vol] 8.9 mmol/L Normal [facility] Comment on above: Performed By: #### T DANDRE, T7, LIPID, CMP #### [facility] [address] [place] [address] Randell Michelle AST [Catalytic activity/Vol] 15 U/L Normal 14-36 [facility] Comment on above: Performed By: #### T SH, T7, LIPID, CMP #### [facility] [address] [place] [address] Randell Michelle Bilirubin [Mass/Vol] 0.8 mg/dL Normal 0.2-1.3 [facility] Comment on above: Performed By: #### T SH, T7, LIPID, CMP #### [facility] [address] [place] [address] Randell Michelle Calcium [Mass/Vol] 9.4 mg/dL Normal 8.4-10.2 [facility] Comment on above: Performed By: #### T SH, T7, LIPID, CMP #### [facility] [address] [place] [address] Randell Michelle Chloride [Moles/Vol] 104 mmol/L Normal 98-107 [facility] Comment on above: Performed By: #### T SH, T7, LIPID, CMP #### [facility] [address] [place] [address] Randell Michelle CO2 [Moles/Vol] 32.1 mmol/L Critically high 22.0-30.0 [facility] Comment on above: Performed By: #### T SH, T7, LIPID, CMP #### [facility] [address] [place] [address] Randell Michelle Creatinine [Mass/Vol] 0.79 mg/dL Normal 0.52-1.04 [facility] Comment on above: Performed By: #### T SH, T7, LIPID, CMP #### [facility] [address] [place] [address] Randell Michelle EGFR-AF BELGIAN >60 Normal >=60 [facility] Comment on above: Performed By: #### T SH, T7, LIPID, CMP #### [facility] [address] [place] [address] Randell Michelle EGFR-NON AF BELGIAN >60 Normal >=60 [facility] Comment on above: Performed By: #### T SH, T7, LIPID, CMP #### [facility] [address] [id number] Randell Michelle Globulin (S) [Mass/Vol] 3.6 g/dL Normal [facility] Comment on above: Performed By: #### T SH, T7, LIPID, CMP #### [facility] [address] [id number] Randell Michelle Glucose [Mass/Vol] 100 mg/dL Normal 74-106 [facility] Comment on above: Performed By: #### T SH, T7, LIPID, CMP #### [facility] [address] [address] Randell Michelle Potassium [Moles/Vol] 4.0 mmol/L Normal 3.4-5.0 [facility] Comment on above: Performed By: #### T SH, T7, LIPID, CMP #### [facility] [address] [address] Randell Michelle Protein [Mass/Vol] 7.5 g/dL Normal 6.1-8.2 [facility] Comment on above: Performed By: #### T SH, T7, LIPID, CMP #### [facility] [address] [id number] Randell Michelle Sodium [Moles/Vol] 141 mmol/L Normal 137-145 [facility] Comment on above: Performed By: #### T SH, T7, LIPID, CMP #### [facility] [address] [id number] Randell Michelle Urea nitrogen [Mass/Vol] 19.0 mg/dL Critically high 7.0-17.0 [facility] Comment on above: Performed By: #### T SH, T7, LIPID, CMP #### [facility] [address] [id number] Randell Michelle Urea nitrogen/Creatinin e [Mass ratio] 24.1 mg/mg Normal [facility] Comment on above: Performed By: #### T SH, T7, LIPID, CMP #### [facility] [address] [id number] Randell Michelle TSHon 07-31-2020 TSH 2.537 uIU/mL Normal 0.470-4.680 [facility] Comment on above: Performed By: #### T SH, T7, LIPID, CMP #### [facility] [address] [place], [place] [address] Randell Martinez TSH RANGE SEE BELOW Normal [facility] Comment on above: Result Comment: <0.3 4 UIU/ml HYPERTHYROID 0.34-5.60 UIU/ml EUTHYROID >5.60 UIU/ml HYPOTHYROID Performed By: #### T SH, T7, LIPID, CMP #### [facility] [address] [place], [place] [address] Randell Martinez US SINGLE QUAD RT UPPERon US SINGLE QUAD RT UPPER EXAMINATION: US SINGLE QUAD RT UPPER HISTORY: Right upper quadrant pain COMPARISON: No relevant comparison available. FINDINGS: The liver is normal in size, contour and echotexture with no focal mass. Normal hepatopedal flow in the main portal vein. The gallbladder is normal in size. The gallbladder wall measures 1.8 mm, normal. Negative sonographic Woodward sign. No cholelithiasis or gallbladder sludge. The common bile duct measures 3 mm, normal. The visualized pancreas is normal in appearance. The right kidney is normal in size, contour and echotexture measuring 9.5 x 4.7 x 3.9 cm per the cortex measures 1.2 cm, normal IMPRESSION: Normal exam Electronically authenticated by: SONYA BILLINGS Date: 2020-07-31 08:40 Normal [facility] MAGR Preoperative Recordon 0 02-12-2018 MAGR Preoperative Record MAGR Pre-Op Record Summary Primary Physician: Jeison Newberry DO Finalized Date/Time: 02/12/18 14:54:10 Pt. Name: SHAYE GRIMALDO/Sex: 1965 FEMALE Med Rec #: [id number] Physician: Jeison Newberry DO Financial #: [id number] Pt. Type: O Room/Bed: [facility]/ Admit/Disch: 12/05/17 06:15:51 - 12/06/17 11:00:00 Institution: Pre-Op Case Times MAGR Pre-Care Text: Patient will be optimally prepared for surgery. Patient is free from s/s of injury. Provide information to patient/family related to plan of care. Verify patient allergies. Confirm identity and verify consent before the operative or invasive procedure. Entry 1 Patient Arrival Time 12/05/17 06:40:00 Preop Departure 12/05/17 08:10:00 Last Modified By: Isis Chamberlain RN 02/12/18 14:54:08 Post-Care Text: Patient is prepared mentally and physically and is ready for surgery. The patient remains free from s/s of injury. Patient/family express understanding of plan of care and participate in decisions affecting his or her perioperrative plan of care. Allergies documented appropriately. Patient identifiers and consent correct. General Comments: Pt arrives per amb. Pt denies any CP, SOB, Hx of S/S of flu, or sleep apnea. Finalized By: Isis Chamberlain RN Document Signatures Signed By: Isis Chamberlain RN 02/12/18 14:54 [facility] History and Physicalon 12-22 History and Physical [id number][id number] - Surgeon/P malathi 12-22-2017 Operative Report - Surgeon/Physician [id number][facility]1.00[facility] Orderson 12-22-2017 Protein mass conc [id number]#1.00[facility] Coding Summaryon 12-19-2017 Coding Summary CODING DATE: 018 [facility] STATUS: Home PAYOR: Commercial Insurance APC DESCRIPTION 5362 Level 2 Laparoscopy and Related Services ADMIT DX: REASON FOR VISIT DX: N81.9 Female genital prolapse, unspecified N95.0 Postmenopausal bleeding 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, unspecified FINAL DX: PRINCIPAL: N72 Inflammatory disease of cervix uteri SECONDARY: N88.8 Other specified noninflammatory disorders of cervix uteri N80.0 Endometriosis of uterus D25.9 Leiomyoma of uterus, unspecified N83.8 Other noninflammatory disorders of ovary, fallopian tube and broad ligament L72.0 Epidermal cyst Z86.718 Personal history of other venous thrombosis and embolism PYMT PROC APC STAT DESCRIPTION DOCTOR NAME DATE 37605 5362 J1 Laparoscopy, surgical, Jeison Newberry DO 12/05/2017 with vaginal hysterectomy, for uterus 250 g or less; with removal of tube(s) and/or ovary(s) NOTE: The code number assigned matches the documented diagnosis and / or procedure in the patient's chart. However, the narrative phrase printed from the coding software may appear abbreviated, or result in slightly different terminology. Coded By: Dejah Eastman Date Saved: 12/19/2017 07:03 am [facility] Coding Summaryon 12-14-2017 Coding Summary CODING DATE: 018 [facility] STATUS: Home PAYOR: Commercial Insurance APC DESCRIPTION 5362 Level 2 Laparoscopy and Related Services ADMIT DX: REASON FOR VISIT DX: N81.9 Female genital prolapse, unspecified N95.0 Postmenopausal bleeding 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, unspecified FINAL DX: PRINCIPAL: N72 Inflammatory disease of cervix uteri SECONDARY: N88.8 Other specified noninflammatory disorders of cervix uteri N80.0 Endometriosis of uterus D25.9 Leiomyoma of uterus, unspecified N83.8 Other noninflammatory disorders of ovary, fallopian tube and broad ligament L72.0 Epidermal cyst Z86.718 Personal history of other venous thrombosis and embolism PYMT PROC APC STAT DESCRIPTION DOCTOR NAME DATE 29012 5362 J1 Laparoscopy, surgical, SOFIE IBARRA with vaginal hysterectomy, for uterus 250 g or less; with removal of tube(s) and/or ovary(s) NOTE: The code number assigned matches the documented diagnosis and / or procedure in the patient's chart. However, the narrative phrase printed from the coding software may appear abbreviated, or result in slightly different terminology. Coded By: Dejah Eastman Date Saved: 12/14/2017 10:37 am [facility] MAGR Intraoperative Recordon 12-11-2017 MAGR Intraoperative Record MAGR Intra-Op Record Summary Primary Physician: Jeison Newberry DO Finalized Date/Time: 12/11/17 14:16:07 Pt. Name: SHAYE GRIMALDO/Sex: 1965 FEMALE Med Rec #: [id number] Physician: Jeison Newberry DO Financial #: [id number] Pt. Type: O Room/Bed: [facility]/ Admit/Disch: 12/05/17 06:15:51 - 12/06/17 11:00:00 Institution: Case Times MAGR Entry 1 Patient In Room Time 12/05/17 08:13:00 Out Room Time 12/05/17 11:14:00 Anesthesia Start Time 12/05/17 08:13:00 Stop Time 12/05/17 11:16:00 Surgery Start Time 12/05/17 08:53:00 Stop Time 12/05/17 11:03:00 Last Modified By: Dora Mueller RN 12/05/17 11:29:39 Case Attendance MAGR Entry 1 Entry 2 Entry 3 Case Attendee Jeison Newberry DO, Nancy Nicholson MD MATCHER/CSFA Role Performed Surgeon - Primary Anesthesiologist of Screening Tech Record Time In 12/05/17 08:13:00 12/05/17 08:13:00 12/05/17 08:13:00 Time Out 12/05/17 11:14:00 12/05/17 11:14:00 12/05/17 11:14:00 Procedure Hysterectomy Hysterectomy Hysterectomy Laparoscopic Total Laparoscopic Total Laparoscopic Total Last Modified By: Dora Mueller RN, Lora RN Draper, Lora RN 12/05/17 11:29:42 12/05/17 11:29:42 12/05/17 11:29:42 Entry 4 Entry 5 Entry 6 Case Attendee Amie Case Lora RN Sauer, Stephanie RN Role Performed Scrub Personnel Rn L And D Rn L And D Time In 12/05/17 08:13:00 12/05/17 08:13:00 12/05/17 08:13:00 Time Out 12/05/17 11:14:00 12/05/17 11:14:00 12/05/17 09:05:00 Procedure Hysterectomy Hysterectomy Hysterectomy Laparoscopic Total Laparoscopic Total Laparoscopic Total Last Modified By: Dora Mueller RN, Lora RN Draper, Lora RN 12/05/17 11:29:42 12/05/17 11:29:42 12/05/17 11:29:42 Entry 7 Case Attendee Federica Roy Role Performed Other Authorized Personnel Time In 12/05/17 09:20:00 Time Out 12/05/17 11:14:00 Procedure Hysterectomy Laparoscopic Total Last Modified By: Dora Mueller RN 12/05/17 11:29:42 Surgical Procedures MAGR Pre-Care Text: A.20 Verifies operative procedure, surgical site, and laterality Im.150 Develops individualized plan of care Entry 1 Procedure Hysterectomy Primary Procedure Yes Laparoscopic Total Primary Surgeon Jeison Newberry DO Surgeon Comment BRANDON WITH BSO Start 12/05/17 08:53:00 Stop 12/05/17 11:03:00 Anesthesia Type General Surgical Service Gynecology Wound Class Clean-Contaminated Last Modified By: Alexandra Lopez RN 12/11/17 14:16:04 Post-Care Text: O.730 The patient's care is consistent with the individualized perioperative plan of care General Case Data MAGR Pre-Care Text: A.350.1 Classifies surgical wound Entry 1 Case Information OR MAGR OR 02 Case Level Level 5 Wound Class Clean-Contaminated Specialty Gynecology ASA Class 2 Diagnosis Preop Diagnosis CYSTOCELE, CEVICAL Postop Same As Preop Yes DYSPLASIA, PELVIC ORGAN PROLAPSE, POST MENOPAUSAL BLEEDING Postop Diagnosis CYSTOCELE, CEVICAL DYSPLASIA, PELVIC ORGAN PROLAPSE, POST MENOPAUSAL BLEEDING Last Modified By: Alexandra Lopez RN 12/11/17 14:15:52 Post-Care Text: O.760 Patient receives consistent and comparable care regardless of the setting Time Out MAGR Entry 1 Time out date/time 12/05/17 08:50:00 All team members Yes have introduced themselves by name and role Surgeon, Yes Surgeon reviews Yes anesthesia, nurse critical or confirm patient, unexpected steps, site, procedure operative duration, anticipated blood loss Anesthesia team Yes Nursing team Yes reviews any reviews sterility patient-specific (including concerns indicator results) and equipment issues/concerns Antibiotic Antibiotic Yes Administration Time 08:10 prophylaxis given within the last 60 minutes Is essential Yes imaging displayed? Last Modified By: Dora Mueller RN 12/05/17 09:15:40 Patient Positioning MAGR Pre-Care Text: A.280 Identifies baseline musculoskeletal status Im.40 Positions the patient Im.80 Applies safety devices Entry 1 Procedure Hysterectomy Body Position Low Lithotomy Laparoscopic Total Left Arm Position Tucked and padded at Right Arm Position Extended on padded arm side board Left Leg Position Secured in Stirrup Right Leg Position Secured in Stirrup Feet Uncrossed? Yes Press Points Checked Yes Positioning Device Stirrups, Safety Strap, Outcome Met (O.80) Yes Pillow Last Modified By: Dora Mueller RN 12/05/17 09:16:29 Post-Care Text: E.290 Evaluates musculoskeletal status O.80 Patient is free from signs and symptoms of injury related to positioning Skin Prep MAGR Pre-Care Text: A.30 Verifies allergies Im.270 Performs skin preparation Im.270.1 Implements protective measures to prevent skin and tissue injury due to chemical sources Entry 1 Entry 2 Skin Prep Syntegrity Prep Agents (Im.270) Chlorhexidine Gluconate Other and Alcohol Prep By Alexandra Lopez RN, Lora RN Prep Area (Im.270) Abdomen Retroperineal and vaginal Prep Area Details Skin Prep Agent Dry Yes Yes Without Pooling Hair Removal Syntegrity Hair Removal Methods No hair removal No hair removal performed performed Hair Removal By Dora Mueller RN Hair Removal Date/Time Hair Removal Site Abdominal and perineal Hair Removal Site Details Outcome Met (O.100) Yes Yes Last Modified By: Dora Mueller RN, Lora RN 12/05/17 09:18:32 12/05/17 09:18:32 Post-Care Text: E.10 Evaluates for signs and symptoms of physical injury to skin and tissue O.100 Patient is free from signs and symptoms of chemical injury General Comments: HIBICLENS PREP USED- DILUTED WITH NORMAL SALINE Counts Verification MAGR Pre-Care Text: A.20 Verifies operative procedure, surgical site, and laterality A.20.2 Assesses the risk for unintended retained foreign body Im.20 Performs required counts Entry 1 Procedure Hysterectomy Laparoscopic Total Counts Verification Initial Counts Items included in Instruments, Sponges, Initial Counts Manual the Initial Count Sharps Method Initial Counts Dora Mueller RN, Initial Count Time 12/05/17 07:45:00 Performed By Amie Case Counts Verification Final Counts Items Included in Sponges, Sharps Final Count Method Manual Final Count Final Count Status Correct Final Counts Dora Mueller RN, Performed By Amie Case Final Count Time 12/05/17 10:58:00 Surgeon notified of Yes final counts status Outcome Met (O.20) Yes Last Modified By: Dora Mueller RN 12/05/17 14:33:02 Post-Care Text: E.50 Evaluates results of the surgical count O.20 Patient is free from unintended retained foreign objects Patient Care Devices MAGR Pre-Care Text: A.200 Assesses risk for normothermia regulation A.40 Verifies presence of prosthetics or corrective devices Im.280 Implements thermoregulation measures Im.60 Uses supplies and equipment within safe parameters Entry 1 Entry 2 Equipment Type PNEUMATIC FOOT/CALF PUMP FORCED WARM AIR- UPPER BODY Serial ?# [id number] Equipment Setting FACTORY DEFAULT 43 DEGREES Last Modified By: Dora Mueller RN, Lora RN 12/05/17 09:32:46 12/05/17 14:30:04 Post-Care Text: E.10 Evaluates signs and symptoms of physical injury to skin and tissue O.700 Patient is free from signs and symptoms of injury caused by extraneous objects Cautery MAGR Pre-Care Text: A.240 Assesses baseline skin condition A.40 Verifies presence of prosthetics or corrective devices Im.50 Implements protective measures to prevent injury due to electrical sources Entry 1 ESU Type Vessel Sealing System Identification 5603 Number ESU Settings Syntegrity Cut Setting 30 Coag Setting 30 Grounding Pad Details Grounding Pad Yes Verified By Dora Mueller RN Needed? Grounding Pad Site Table Grounding Pad Within Expiration Yes Date? Outcome Met (O.10) Yes Last Modified By: Dora Mueller RN 12/05/17 09:35:32 Post-Care Text: E.10 Evaluates for signs and symptoms of physical injury to skin and tissue O.10 Patient is free from signs and symptoms of injury related to thermal sources Catheters, Drains & Tubes MAGR Pre-Care Text: A.310 Identifies factors associated with an increased risk for hemorrhage or fluid and electrolyte imbalance Im.250 Administers care to invasive device sites Entry 1 Device Description TRAY URINE METER CLAYTON Device Type Urethral Location Bladder Balloon Inflation 10 ML Amount Present on Arrival? No Inserted By Dora Mueller RN Inserted Date/Time 12/05/17 10:19:00 DC'd at End of Case? No Drainage Details Drainage? Yes Drainage System Dependent drainage bag Color Yellow Urinary Catheter Hand Hygiene Performed Outcome Met (O.60) Yes Checklist Before and After Insertion, Aseptic Technique and Sterile Equipment Used, Perineal Area Cleansed Before Insertion, Collection Bag Positioned Below Bladder Last Modified By: Dora Mueller RN 12/05/17 10:39:22 Post-Care Text: E.340 Evaluates tubes and drains are intact and functioning as planned O.60 Patient is free from signs and symptoms of injury caused by extraneous objects Cultures and Specimens MAGR Pre-Care Text: A.350 Assesses susceptibility for infection A.10 Confirms patient identity Im.320 Manages culture specimen collection Im.330 Manages specimen handling and disposition Entry 1 Cultures Ordered No Specimens Ordered Yes Outcome Met (O.40) Yes Last Modified By: Dora Mueller RN 12/05/17 09:37:00 Post-Care Text: E.40 Evaluates correct processes have been performed for specimen handling and disposition O.40 Patient's specimen(s) is managed in the appropriate manner General Comments: UTERUS, BILATERAL FALLOPIAN TUBES AND BILATERAL OVARIES SENT Medication Administration MAGR Pre-Care Text: A.210 Identifies physiological status Im.220 Administers prescribed medications Entry 1 Time Administered 12/05/17 10:53:00 Medication 0.25% MARCAINE WIH EPINEPHRINE 1:200,000 Route of Admin Incisional/Surgical Site Dose 30 mL By Jeison Newberry DO Outcome Met (O.130) Yes Last Modified By: Dora Mueller RN 12/05/17 11:01:44 Post-Care Text: E.20 Evaluates response to medications O.130 Patient receives appropriately administered medication(s) Dressing/Packing MAGR Pre-Care Text: A.350 Assesses susceptibility for infection Im.290 Administer care to wound sites Entry 1 Entry 2 Skin Prep Agent Yes Yes Removed Prior to Dressing? Site Abdomen Perineum Site Details Wound closure Primary Dressing Item Details Dressing Item (Im.290) Packing (Im.290) Cast (Im.290) Splint (Im.290) Tape (Im.290) Wound Closure Strip Miscellaneous Sanitary Pad (Im.290) Outcome Met Yes Yes Last Modified By: Dora Mueller RN, Lora RN 12/05/17 09:41:13 12/05/17 09:41:13 Post-Care Text: E.200 Evaluates progress of wound healing O.200 Patient's wound perfusion is consistent with or improved from baseline levels Counts Verif Addtnl MAGR Pre-Care Text: A.20 Verifies operative procedure, surgical site, and laterality A.20.2 Assesses the risk for unintended retained foreign body Im.20 Performs required counts Entry 1 Procedure Hysterectomy Count Type: Cavity Closure Laparoscopic Total Items Counted Instruments, Sharps, Count Method: Manual Sponges Personnel Amie Case, Date and Time 12/05/17 10:17:00 Performing Count: Dora Mueller RN Count Results: Correct Surgeon notified? Yes Last Modified By: Dora Mueller RN 12/05/17 11:02:37 Post-Care Text: E.50 Evaluates results of the surgical count O.20 Patient is free from unintended retained foreign objects Departure from OR MAGR Entry 1 Present on Depart Oxygen, Catheter Via Bed Post-op Destination PACU Skin DFO Condition Warm Description Condition Dry Description Report Given To Sugey Casey RN Airway Maintenance Patient Status Stable Oxygen in Use? Yes Airway Device Simple mask Flow Rate 8 L/min Last Modified By: Dora Mueller RN 12/05/17 11:29:56 Case Comments Finalized By: Alexandra Lopez RN Document Signatures Signed By: Dora Mueller RN 12/05/17 14:33 Alexandra Lopez RN 12/11/17 14:16 Unfinalized History Date/Time Username Reason for Unfinalizing Freetext Reason for Unfinalizing 12/11/17 14:15 [facility] Correct Documentation Normal [facility] MAGR Postoperative Recordon 12-11-2017 MAGR Postoperative Record MAGR Phase II Record Summary Primary Physician: Jeison Newberry DO Finalized Date/Time: 12/11/17 11:33:23 Pt. Name: SHAYE GRIMALDO D.O.B./Sex: 1965 FEMALE Med Rec #: [id number] Physician: Jeison Newberry DO Financial #: [id number] Pt. Type: O Room/Bed: [facility]/ Admit/Disch: 12/05/17 06:15:51 - 12/06/17 11:00:00 Institution: Phase II Case Times MAGR Pre-Care Text: Patient is free from s/s of injury. Patient remains free from compromised physical state related to surgery or anesthesia. Patient comfort maintained. Patient/family verbalize understanding of discharge instructions. Entry 1 In PACU II 12/05/17 12:11:00 Discharge from PACU 12/05/17 13:11:00 II Last Modified By: Aparna Martines RN 12/11/17 11:33:14 Post-Care Text: The patient remains free from s/s of injury. Patient's vital signs stable, circulation maintained, return to preop mental and physical status, opsite/dressing intact, minimal or absent nausea and vomiting, tolerates po intake. Patient verbalizes adequate pain control. Patient/family express understanding of discharge instructions. General Comments: care per [facility] Finalized By: Aparna Martines RN Document Signatures Signed By: Aparna Martines RN 12/11/17 11:33 [facility] Consent Formson 12-07-2017 Consent Forms [id number].IFF [facility] Electronic Messagingon 12-07 Thyrotropin Qn --- --- --- --- --- --- --- --- ---From: Directel ([id number]), DirecttestTo: SHYAE GRIMALDO JSent: 12/07/17 01:06:13 AM EDTSubject: Discharge Summary Ready to ViewA summary regarding your recent visit is available in the Documents section of your Health Record. [facility] Lab - AP Resultson 8 Lab - AP Results [id number]. [facility] Pathology Sendout Teston Pathology Send Out. See Report [facility] Comment on above: Order Comment: UTERU S, BILATERAL FALLOPIAN TUBES AND BILATERAL OVARIES Performed By: #### 2 [id number] ####[facility] (DEFAULT)[address] [place] [address] Telemetry Stripson 8 Telemetry Strips [id number]#1.[facility] .Auto Diff 1on 12-06-2017 Auto Baso % 0.0 % Low 0.2-2.0 [facility] Comment on above: Performed By: #### 7 [id number], [id number] ####[facility] (DEFAULT)[address] [place] [address] 31675 Auto [place] % 12 % Normal 1-12 [facility] Comment on above: Performed By: #### 7 [id number], [id number] ####[facility] (DEFAULT)[address] [place] [address] 79866 Auto Neut % 73 % Normal 44-88 [facility] Comment on above: Performed By: #### 7 [id number], [id number] ####[facility] (DEFAULT)[address] [place] [address] 92654 Baso Abs# 0.0 x10 Normal 0.0-0.2 [facility] Comment on above: Performed By: #### 7 [id number], [id number] ####[facility] (DEFAULT)[address] [place] [address] 65872 Eos Abs# 0.0 x10 Normal 0.0-0.4 [facility] Comment on above: Performed By: #### 7 [id number], [id number] ####[facility] (DEFAULT)[address] [place] [address] 68284 Eosinophils/100 WBC Auto (Bld) 0.0 % Low 0.9-4.0 [facility] Comment on above: Performed By: #### 7 [id number], [id number] ####[facility] (DEFAULT)[address] [place] [address] 23436 Lymphocytes Auto #/vol (Bld) 1.7 x10 Normal 1.3-2.9 [facility] Comment on above: Performed By: #### 7 [id number], [id number] ####[facility] (DEFAULT)[address] [place] [address] 46046 Lymphocytes/100 WBC Auto (Bld) 15 % Normal 14-48 [facility] Comment on above: Performed By: #### 7 [id number], [id number] ####[facility] (DEFAULT)[address] [place] [address] 72257 [place] Abs# 1.4 x10 High 0.0-0.8 [facility] Comment on above: Performed By: #### 7 [id number], [id number] ####[facility] (DEFAULT)[address] [place] [address] Neut Abs# 8.0 x10 Normal 1.5-9.2 [facility] Comment on above: Performed By: #### 7 [id number], [id number] ####[facility] (DEFAULT)[address] [place] [address] CBC w/ Auto Diffon 8 Erythrocyte distribution width Auto Ratio (RBC) 12.7 % Normal 11.5-15.0 [facility] Comment on above: Performed By: #### 7 [id number], [id number] ####[facility] (DEFAULT)[address] [place] [address] Hematocrit Auto Volume Fraction (Bld) 35.9 % Normal 33.7-40.4 [facility] Comment on above: Performed By: #### 7 [id number], [id number] ####[facility] (DEFAULT)[address] [place] [address] Hemoglobin mass conc (Bld) 12.0 g/dL Normal 11.3-15.9 [facility] Comment on above: Performed By: #### 7 [id number], [id number] ####[facility] (DEFAULT)[address] [place] [address] Man Diff? Auto Normal [facility] Comment on above: Performed By: #### 7 [id number], [id number] ####[facility] (DEFAULT)[address] [place] [address] MCH Auto Entitic mass (RBC) 31 pg Normal 24-34 [facility] Comment on above: Performed By: #### 7 [id number], [id number] ####[facility] (DEFAULT)[address] [place] [address] 97488 MCHC Auto mass conc (RBC) 33 g/dL Normal 26-37 [facility] Comment on above: Performed By: #### 7 [id number], [id number] ####[facility] (DEFAULT)[address] [place] [address] MCV Auto Entitic volume (RBC) 92 fL Normal 81-100 [facility] Comment on above: Performed By: #### 7 [id number], [id number] ####[facility] (DEFAULT)[address] [place] [address] 86894 Platelet mean volume Auto Entitic volume (Bld) 9.9 fL Normal 6.3-10.2 [facility] Comment on above: Performed By: #### 7 [id number], [id number] ####[facility] (DEFAULT)[address] [place] [address] 75239 Platelets Auto #/vol (Bld) 231 x10 Normal 138-427 [facility] Comment on above: Performed By: #### 7 [id number], [id number] ####[facility] (DEFAULT)[address] [place] [address] 64229 RBC Auto #/vol (Bld) 3.89 x10 Normal 3.70-5.30 [facility] Comment on above: Performed By: #### 7 [id number], [id number] ####[facility] (DEFAULT)[address] [place] [address] 97132 WBC Auto #/vol (Bld) 11.0 x10 Invalid Interpretation Code [facility] Comment on above: Performed By: #### 7 [id number], [id number] ####[facility] (DEFAULT)[address] [place] [address] Education Noteon 12-06-2017 Education Note Education Materials Vaginal Hysterectomy, Care AfterRefer to this sheet in the next few weeks. These instructions provide you with information on caring for yourself after your procedure. Your health care provider may also give you more specific instructions. Your treatment has been planned according to current medical practices, but problems sometimes occur. Call Dr Newberry's office or [facility] to request to speak with Dr Newberry if you have any problems or questions after your procedure.WHAT TO EXPECT AFTER THE PROCEDUREAfter your procedure, it is typical to have the following:? Abdominal pain. You will be given pain medicine to control it.? Sore throat from the breathing tube that was inserted during surgery.HOME CARE INSTRUCTIONS? Only take wctu-jlz-odwvvvy or prescription medicines for pain, discomfort, or fever as directed by your health care provider.? Do not take aspirin. It can cause bleeding.? Do not drive when taking pain medicine.? Follow Dr Newberry's instructions regarding diet, exercise, no lifting over 20 lbs for (2) weeks, no driving while taking narcotic pain medications.? Resume your usual diet as directed and allowed.? Get plenty of rest and sleep.? Do not douche, use tampons, or have sexual intercourse for at least 6 weeks, or until your health care provider gives you permission.? Monitor your temperature and notify Dr Newberry of a body temperature greater than 100.6 degrees.? Take showers instead of baths for 2?3 weeks.Shower daily? Do not drink alcohol until your health care provider gives you permission.? If you develop constipation, you may take a milk of magnesia or Dulcolax (Bisacodyl) suppository or tablets. Bran foods may help with constipation problems. Drinking enough fluids to keep your urine clear or pale yellow may help as well.? Try to have someone home with you for 1?2 weeks to help around the house.? Follow-up appointment with Dr Newberry in 2 weeks after surgery. Call his office for an appointment.SEEK MEDICAL CARE IF:? You feel dizzy or lightheaded.? You have pain or bleeding when you urinate.? You have persistent diarrhea.? You have persistent nausea and vomiting.? You have heavy vaginal bleeding.? You have a rash.? You have any type of abnormal reaction or develop an allergy to your medicine.? You have poor pain control with your prescribed medicine.SEEK IMMEDIATE MEDICAL CARE IF:? You have a fever.? You have severe abdominal pain.? You have chest pain.? You have shortness of breath.? You faint.? You have pain, swelling, or redness in your leg.? You have heavy vaginal bleeding with blood clots.MAKE SURE YOU:? Understand these instructions.? Will watch your condition.? Will get help right away if you are not doing well or get worse.This information is not intended to replace advice given to you by your health care provider. Make sure you discuss any questions you have with your health care provider.Document Released: 01/12/2012 Document Revised: 01/28/2014 Document Reviewed: 08/08/2013[employer] Patient Education ?2016 [employer] Normal [facility] Inpatient Patient Summaryon 12-06-2017 Inpatient Patient Summary [place] [id number] patient Discharge InstructionsName: SHAYE GRIMALDO JDOB: [birth year] Address: [address] [place], [place] [address]Primary Care Provider:Name: TYRONE GEORGEPhone: After you are discharged if you find you have any questions, please, call [phone] ext [phone] to speak to a nurse.Discharge Diagnosis: 1:Pelvic organ prolapse quantification stage 3 cystocele; 2:Postmenopausal vaginal bleeding; 3:Cervical dysplasia, moderateIf you received any narcotics, sedation, or any other medication that causes drowsiness for the next 24 hours, unless otherwise directed:? Do not drive a car.? Do not operate machinery such as power tools, lawn mowers, drills, sewing machines, or stoves? Avoid alcoholic beverages and drugs for allergies, nerves, or sleep? Do not make important personal or business decisions or sign any legal documentsGreen Cross Hospital would like to thank you for allowing us to assist you with your healthcare needs. The following includes patient education materials and information regarding your injury/illness.SHAYE GRIMALDO has been given the following list of follow-up instructions, prescriptions, and patient education materials:Follow-up InstructionsWith: Address: When:Jeison Newberry [address] [place], [place] [id number] Business (1) Within 1 to 2 weeksWith: Address: When:TYRONE GEORGE [address] [place], [place] [id number] Business (1)MedicationsDuring the course of your visit, your medication list was updated with the most current information. The details of those changes are reflected below:New MedicationsPrinted Prescriptionsacetaminophen- oxycodone (Percocet 5/325 oral tablet) 1 tab(s) Oral every 6 hours as needed for pain. may take 1 or 2 tabletsnot to exceed 12 tablets/day. Refills: 0.ibuprofen (ibuprofen 600 mg oral tablet) 1 tab(s) Oral Every 6 hours as needed as needed for pain. Refills: 0.Medications to Continue That Have Not ChangedOther Medicationsminocycline 10 Milligram Oral as needed Other (see comment).multivitamin with iron (Multiple Vitamins with Iron oral tablet) 1 tab(s) Oral every day.simvastatin (simvastatin 20 mg oral tablet) 1 tab(s) Oral every day.It is important to always keep an active list of medications available so that you can share with other providers and manage your medications appropriately. As an additional courtesy, we are also providing you with your final active medications list that you can keep with you.acetaminophen-oxycodone (Percocet 5/325 oral tablet) 1 tab(s) Oral every 6 hours as needed for pain. may take 1 or 2 tabletsnot to exceed 12 tablets/day. Refills: 0.ibuprofen (ibuprofen 600 mg oral tablet) 1 tab(s) Oral Every 6 hours as needed as needed for pain. Refills: 0.minocycline 10 Milligram Oral as needed Other (see comment)., break out/pimplesmultivitamin with iron (Multiple Vitamins with Iron oral tablet) 1 tab(s) Oral every day.simvastatin (simvastatin 20 mg oral tablet) 1 tab(s) Oral every day.Take only the medications listed above. Contact your doctor prior to taking any medications not on this list.Medication leaflets, if any, will display belowibuprofen(EYE bue PROE fen)Advil, Genpril, IBU, Midol IB, Motrin IB, Proprinal, Smart Sense Children's IbuprofenWhat is the most important information I should know about ibuprofen?Ibuprofen can increase your risk of fatal heart attack or stroke, especially if you use it mcc or take high doses, or if you have heart disease. Do not use this medicine just before or after heart bypass surgery (coronary artery bypass graft, or CABG).Ibuprofen may also cause stomach or intestinal bleeding, which can be fatal. These conditions can occur without warning while you are using ibuprofen, especially in older adults.What is ibuprofen?Ibuprofen is a nonsteroidal anti-inflammatory drug (NSAID). Ibuprofen works by reducing hormones that cause inflammation and pain in the body.Ibuprofen is used to reduce fever and treat pain or inflammation caused by many conditions such as headache, toothache, back pain, arthritis, menstrual cramps, or minor injury. This medicine is used in adults and children who are at least 6 months old.Ibuprofen may also be used for purposes not listed in this medication guide.What should I discuss with my healthcare provider before taking ibuprofen?Ibuprofen can increase your risk of fatal heart attack or stroke, especially if you use it manager terminal or take high doses, or if you have heart disease. Even people without heart disease or risk factors could have a stroke or heart attack while taking this medicine.Do not use this medicine just before or after heart bypass surgery (coronary artery bypass graft, or CABG).Ibuprofen may also cause stomach or intestinal bleeding, which can be fatal. These conditions can occur without warning while you are using ibuprofen, especially in older adults.You should not use ibuprofen if you are allergic to it, or if you have ever had an asthma attack or severe allergic reaction after taking aspirin or an NSAID.Ask a doctor or pharmacist if it is safe for you to take this medicine if you have:?? heart disease, high blood pressure, high cholesterol, diabetes, or if you smoke;? a history of heart attack, stroke, or blood clot;? a history of stomach ulcers or bleeding;? asthma;? liver or kidney disease;? fluid retention; or? a connective tissue disease such as Marfan syndrome, Sjogren's syndrome, or lupus.Taking ibuprofen during the last 3 months of may harm the unborn baby. Do not use this medicine without a doctor's advice if you are .It is not known whether ibuprofen passes into breast milk or if it could affect a nursing baby. Ask a doctor before using this medicine if you are breast-feeding.Do not give ibuprofen to a child younger than 2 years old without the advice of a doctor.How should I take ibuprofen?Use exactly as directed on the label, or as prescribed by your doctor. Do not use in larger amounts or for longer than recommended. Use the lowest dose that is effective in treating your condition.Do not take more than your recommended dose. An ibuprofen overdose can damage your stomach or intestines. The maximum amount of ibuprofen for adults is 800 milligrams per dose or 3200 mg per day (4 maximum doses). Use only the smallest amount of ibuprofen needed to get relief from your pain, swelling, or fever.A child's dose of ibuprofen is based on the age and weight of the child. Carefully follow the dosing instructions provided with children's ibuprofen for the age and weight of your child. Ask a doctor or pharmacist if you have questions.Take ibuprofen with food or milk to lessen stomach upset.Shake the oral suspension (liquid) well just before you measure a dose. Measure liquid medicine with the dosing syringe provided, or with a special dose-measuring spoon or medicine cup. If you do not have a dose-measuring device, ask your pharmacist for one.The ibuprofen chewable tablet must be chewed before you swallow it.If you use this medicine long-term, you may need frequent medical tests.Store at room temperature away from moisture and heat. Do not allow the liquid medicine to freeze.Read all patient information, medication guides, and instruction sheets provided to you. Ask your doctor or pharmacist if you have any questions.What happens if I miss a dose?Since ibuprofen is used when needed, you may not be on a dosing schedule. If you are on a schedule, use the missed dose as soon as you remember. Skip the missed dose if it is almost time for your next scheduled dose. Do not use extra medicine to make up the missed dose.What happens if I overdose?Seek emergency medical attention or call the Poison Help line at . Overdose symptoms may include nausea, vomiting, stomach pain, drowsiness, black or bloody stools, coughing up blood, shallow breathing, fainting, or coma.What should I avoid while taking ibuprofen?Avoid drinking alcohol. It may increase your risk of stomach bleeding.Avoid taking aspirin while you are taking ibuprofen.Avoid taking ibuprofen if you are taking aspirin to prevent stroke or heart attack. Ibuprofen can make aspirin less effective in protecting your heart and blood vessels. If you must use both medications, take the ibuprofen at least 8 hours before or 30 minutes after you take the aspirin (non-enteric coated form).Ask a doctor or pharmacist before using any cold, allergy, or pain medicine. Many medicines available over the counter contain aspirin or other medicines similar to ibuprofen. Taking certain products together can cause you to get too much of this type of medication. Check the label to see if a medicine contains aspirin, ibuprofen, ketoprofen, or naproxen.What are the possible side effects of ibuprofen?Get emergency medical help if you have signs of an allergic reaction: sneezing, runny or stuffy nose; wheezing or trouble breathing; hives; swelling of your face, lips, tongue, or throat.Get emergency medical help if you have signs of a heart attack or stroke: chest pain spreading to your jaw or shoulder, sudden numbness or weakness on one side of the body, slurred speech, leg swelling, feeling short of breath.Stop using ibuprofen and call your doctor at once if you have:?? changes in your vision;? shortness of breath (even with mild exertion);? swelling or rapid weight gain;? the first sign of any skin rash, no matter how mild;? signs of stomach bleeding--bloody or tarry stools, coughing up blood or vomit that looks like coffee grounds;? liver problems--nausea, upper stomach pain, itching, tired feeling, flu-like symptoms, loss of appetite, dark urine, lazaro-colored stools, jaundice (yellowing of the skin or eyes);? kidney problems--little or no urinating, painful or difficult urination, swelling in your feet or ankles, feeling tired or short of breath;? low red blood cells (anemia)--pale skin, feeling light-headed or short of breath, rapid heart rate, trouble concentrating; or? severe skin reaction--fever, sore throat, swelling in your face or tongue, burning in your eyes, skin pain followed by a red or purple skin rash that spreads (especially in the face or upper body) and causes blistering and peeling.Common side effects may include:?? upset stomach, mild heartburn, nausea, vomiting;? bloating, gas, diarrhea, constipation;? dizziness, headache, nervousness;? mild itching or rash; or? ringing in your ears.This is not a complete list of side effects and others may occur. Call your doctor for medical advice about side effects. You may report side effects to FDA at 5-870-PHQ-6237.What other drugs will affect ibuprofen?Ask your doctor before using ibuprofen if you take an antidepressant such as citalopram, escitalopram, fluoxetine (Prozac), fluvoxamine, paroxetine, sertraline (Zoloft), trazodone, or vilazodone. Taking any of these medicines with an NSAID may cause you to bruise or bleed easily.Ask a doctor or pharmacist if it is safe for you to use ibuprofen if you are also using any of the following drugs:?? lithium;? methotrexate;? a blood thinner (warfarin, Coumadin, Jantoven);? heart or blood pressure medication, including a diuretic or 'water pill'; or? steroid medicine (such as prednisone).This list is not complete. Other drugs may interact with ibuprofen, including prescription and pkmz-nhv-bzanwnv medicines, vitamins, and herbal products. Not all possible interactions are listed in this medication guide.Where can I get more information?Your pharmacist can provide more information about ibuprofen.Remember, keep this and all other medicines out of the reach of children, never share your medicines with others, and use this medication only for the indication prescribed.Every effort has been made to ensure that the information provided by [employer] ('[employer]') is accurate, up-to-date, and complete, but no guarantee is made to that effect. Drug information contained herein may be time sensitive. [employer] information has been compiled for use by healthcare practitioners and consumers in the [place] and therefore [employer] does not warrant that uses outside of the [place] are appropriate, unless specifically indicated otherwise. [employer] drug information does not endorse drugs, diagnose patients or recommend therapy. [employer] drug information is an informational resource designed to assist licensed healthcare practitioners in caring for their patients and/or to serve consumers viewing this service as a supplement to, and not a substitute for, the expertise, skill, knowledge and judgment of healthcare practitioners. The absence of a warning for a given drug or drug combination in no way should be construed to indicate that the drug or drug combination is safe, effective or appropriate for any given patient. [employer] does not assume any responsibility for any aspect of healthcare administered with the aid of information [employer] provides. The information contained herein is not intended to cover all possible uses, directions, precautions, warnings, drug interactions, allergic reactions, or adverse effects. If you have questions about the drugs you are taking, check with your doctor, nurse or pharmacist.Copyright 8082-6269 [employer] Version: 18.01. Revision Date: 05/05/2016.acetaminophen and oxycodone(a SEET a MIN oh fen and OX i KOE done)Percocet 10/325, Percocet 2.5/325, Percocet 5/325, Percocet 7.5/325, Primlev, Roxicet, Xartemis XRWhat is the most important information I should know about acetaminophen and oxycodone?This medicine can slow or stop your breathing, and may be habit-forming. Use only your prescribed dose, and swallow the pill whole to avoid a potentially fatal dose. Never share acetaminophen and oxycodone with another person.MISUSE OF THIS MEDICINE CAN CAUSE ADDICTION, OVERDOSE, OR , especially in a child or other person using the medicine without a prescription.Taking this medicine during may cause life-threatening withdrawal symptoms in the .An overdose of acetaminophen can damage your liver or cause . Call your doctor at once if you have nausea, pain in your upper stomach, itching, loss of appetite, dark urine, lazaro-colored stools, or jaundice (yellowing of your skin or eyes).Stop taking this medicine and call your doctor right away if you have skin redness or a rash that spreads and causes blistering and peeling.Fatal side effects can occur if you use this medicine with alcohol, or with other drugs that cause drowsiness or slow your breathing.What is acetaminophen and oxycodone?Oxycodone is an opioid pain medication, sometimes called a narcotic. Acetaminophen is a less potent pain reliever that increases the effects of oxycodone.Acetaminophen and oxycodone is a combination medicine used to relieve moderate to severe pain.Acetaminophen and oxycodone may also be used for purposes not listed in this medication guide.What should I discuss with my healthcare provider before taking acetaminophen and oxycodone?You should not use this medicine if you are allergic to acetaminophen (Tylenol) or oxycodone, or if you hvae:?? severe asthma or breathing problems; or? a blockage in your stomach or intestines, including paralytic ileus.To make sure this medicine is safe for you, tell your doctor if you have ever had:?? any type of breathing problem or lung disease;? liver disease, cirrhosis, or if you drink alcohol daily;? drug or alcohol addiction, or mental illness;? kidney disease, urination problems;? problems with your gallbladder, pancreas, thyroid, or adrenal gland; or? a head injury, brain tumor, or seizures.Some medicines can interact with oxycodone and cause a serious condition called serotonin syndrome. Be sure your doctor knows if you also take stimulant medicine, herbal products, or medicine for depression, mental illness, Parkinson's disease, migraine headaches, serious infections, or prevention of nausea and vomiting. Ask your doctor before making any changes in how or when you take your medications.If you use oxycodone while you are , your baby could become dependent on the drug. This can cause life-threatening withdrawal symptoms in the baby after it is born. Babies born dependent on habit-forming medicine may need medical treatment for several weeks. Tell your doctor if you are or plan to become .Do not breast-feed. Acetaminophen and oxycodone can pass into breast milk and may cause drowsiness or breathing problems in a nursing baby.How should I take acetaminophen and oxycodone?Follow all directions on your prescription label. Oxycodone can slow or stop your breathing, especially when you start using this medicine or whenever your dose is changed. Never use this medicine in larger amounts, or for longer than prescribed. An overdose can damage your liver or cause . Tell your doctor if the medicine seems to stop working as well in relieving your pain.Oxycodone may be habit-forming, even at regular doses. Never share this medicine with another person, especially someone with a history of drug abuse or addiction. MISUSE OF NARCOTIC MEDICINE CAN CAUSE ADDICTION, OVERDOSE, OR , especially in a child or other person using the medicine without a prescription. Selling or giving away acetaminophen and oxycodone is against the law.Measure liquid medicine with a special dose-measuring spoon or medicine cup. If you do not have a dose-measuring device, ask your pharmacist for one.Do not crush, break, or open an extended-release pill. Swallow it whole to avoid exposure to a potentially fatal dose. Never crush or break a pill to inhale the powder or mix it into a liquid to inject the drug into your vein.If you need surgery, tell the surgeon ahead of time that you are using this medicine. You may need to stop using the medicine for a short time.Do not stop using this medicine suddenly after long-term use, or you could have unpleasant withdrawal symptoms. Ask your doctor how to safely stop using the medicine.Store at room temperature away from moisture and heat. Keep track of your medicine. Oxycodone is a drug of abuse and you should be aware if anyone is using your medicine improperly or without a prescription.Do not keep leftover opioid medication. Just one dose can cause in someone using this medicine accidentally or improperly. Ask your pharmacist where to locate a drug take-back disposal program. If there is no take-back program, flush the unused medicine down the toilet.What happens if I miss a dose?Since this medicine is used for pain, you are not likely to miss a dose. Skip any missed dose if it is almost time for your next scheduled dose. Do not use extra medicine to make up the missed dose.What happens if I overdose?Seek emergency medical attention or call the Poison Help line at . An overdose can be fatal, especially in a child or other person using this medicine without a prescription. Overdose can cause severe muscle weakness, pinpoint pupils, very slow breathing, extreme drowsiness, or coma.The first signs of an acetaminophen overdose include loss of appetite, nausea, vomiting, stomach pain, sweating, and confusion or weakness.What should I avoid while taking acetaminophen and oxycodone?Do not drink alcohol. Dangerous side effects or could occur.This medicine may impair your thinking or reactions. Avoid driving or operating machinery until you know how this medicine will affect you. Dizziness or severe drowsiness can cause falls or other accidents.Ask a doctor or pharmacist before using any other cold, allergy, pain, or sleep medication. Acetaminophen (sometimes abbreviated as APAP) is contained in many combination medicines. Taking certain products together can cause you to get too much acetaminophen which can lead to a fatal overdose.What are the possible side effects of acetaminophen and oxycodone?Get emergency medical help if you have signs of an allergic reaction: hives; difficulty breathing; swelling of your face, lips, tongue, or throat.In rare cases, acetaminophen may cause a severe skin reaction that can be fatal. This could occur even if you have taken acetaminophen in the past and had no reaction. Stop taking this medicine and call your doctor right away if you have skin redness or a rash that spreads and causes blistering and peeling.Like other narcotic medicines, oxycodone can slow your breathing. may occur if breathing becomes too weak.Call your doctor at once if you have:?? noisy breathing, sighing, shallow breathing;? slow heartbeat or weak pulse;? a light-headed feeling, like you might pass out;? confusion, unusual thoughts or behavior;? weakness, tiredness, fever, unusual bruising or bleeding;? problems with urination; or? liver problems--nausea, upper stomach pain, loss of appetite, dark urine, lazaro-colored stools, jaundice (yellowing of the skin or eyes).Seek medical attention right away if you have symptoms of serotonin syndrome, such as: agitation, hallucinations, fever, sweating, shivering, fast heart rate, muscle stiffness, twitching, loss of coordination, nausea, vomiting, or diarrhea.Serious side effects may be more likely in older adults and those who are overweight, malnourished, or debilitated.Long-term use of opioid medication may affect fertility (ability to have children) in men or women. It is not known whether opioid effects on fertility are permanent.Common side effects include:?? dizziness, drowsiness;? feelings of extreme happiness or sadness;? nausea, vomiting;? constipation; or? itching.This is not a complete list of side effects and others may occur. Call your doctor for medical advice about side effects. You may report side effects to FDA at 1-772-IOZ-8017.What other drugs will affect acetaminophen and oxycodone?Narcotic (opioid) medication can interact with many other drugs and cause dangerous side effects or . Be sure your doctor knows if you also use:?? other narcotic medications--opioid pain medicine or prescription cough medicine;? a sedative like Valium--diazepam, alprazolam, lorazepam, Ativan, Klonopin, Restoril, Tranxene, Versed, Xanax, and others); or? drugs that make you sleepy or slow your breathing--a sleeping pill, muscle relaxer, tranquilizer, antidepressant, or antipsychotic medicine.This list is not complete. Other drugs may interact with acetaminophen and oxycodone, including prescription and bfqq-acc-ocxrvwj medicines, vitamins, and herbal products. Not all possible interactions are listed in this medication guide.Where can I get more information?Your pharmacist can provide more information about acetaminophen and oxycodone.Remember, keep this and all other medicines out of the reach of children, never share your medicines with others, and use this medication only for the indication prescribed.Every effort has been made to ensure that the information provided by [employer]') is accurate, up-to-date, and complete, but no guarantee is made to that effect. Drug information contained herein may be time sensitive. [employer] information has been compiled for use by healthcare practitioners and consumers in the [place] and therefore [employer] does not warrant that uses outside of the [place] are appropriate, unless specifically indicated otherwise. [employer] drug information does not endorse drugs, diagnose patients or recommend therapy. [employer] drug information is an informational resource designed to assist licensed healthcare practitioners in caring for their patients and/or to serve consumers viewing this service as a supplement to, and not a substitute for, the expertise, skill, knowledge and judgment of healthcare practitioners. The absence of a warning for a given drug or drug combination in no way should be construed to indicate that the drug or drug combination is safe, effective or appropriate for any given patient. [employer] does not assume any responsibility for any aspect of healthcare administered with the aid of information [employer] provides. The information contained herein is not intended to cover all possible uses, directions, precautions, warnings, drug interactions, allergic reactions, or adverse effects. If you have questions about the drugs you are taking, check with your doctor, nurse or pharmacist.Copyright 6103-8826 [employer] Version: 16.01. Revision Date: 01/17/2017.Diet & ActivityPatient Activity Level: As ToleratedPatient Diet: RegularPatient Activity Restrictions: No driving, No Heavy Lifting Over 50lbs, No Sexual ActivityPatient education materials, if any, will display below Vaginal Hysterectomy, Care AfterRefer to this sheet in the next few weeks. These instructions provide you with information on caring for yourself after your procedure. Your health care provider may also give you more specific instructions. Your treatment has been planned according to current medical practices, but problems sometimes occur. Call Dr Newberry's office or [place] to request to speak with Dr Newberry if you have any problems or questions after your procedure.WHAT TO EXPECT AFTER THE PROCEDUREAfter your procedure, it is typical to have the following:? Abdominal pain. You will be given pain medicine to control it.? Sore throat from the breathing tube that was inserted during surgery.HOME CARE INSTRUCTIONS? Only take rllq-yyw-torbtxy or prescription medicines for pain, discomfort, or fever as directed by your health care provider.? Do not take aspirin. It can cause bleeding.? Do not drive when taking pain medicine.? Follow Dr Newberry's instructions regarding diet, exercise, no lifting over 20 lbs for (2) weeks, no driving while taking narcotic pain medications.? Resume your usual diet as directed and allowed.? Get plenty of rest and sleep.? Do not douche, use tampons, or have sexual intercourse for at least 6 weeks, or until your health care provider gives you permission.? Monitor your temperature and notify Dr Newberry of a body temperature greater than 100.6 degrees.? Take showers instead of baths for 2?3 weeks.Shower daily? Do not drink alcohol until your health care provider gives you permission.? If you develop constipation, you may take a milk of magnesia or Dulcolax (Bisacodyl) suppository or tablets. Bran foods may help with constipation problems. Drinking enough fluids to keep your urine clear or pale yellow may help as well.? Try to have someone home with you for 1?2 weeks to help around the house.? Follow-up appointment with Dr Newberry in 2 weeks after surgery. Call his office for an appointment.SEEK MEDICAL CARE IF:? You feel dizzy or lightheaded.? You have pain or bleeding when you urinate.? You have persistent diarrhea.? You have persistent nausea and vomiting.? You have heavy vaginal bleeding.? You have a rash.? You have any type of abnormal reaction or develop an allergy to your medicine.? You have poor pain control with your prescribed medicine.SEEK IMMEDIATE MEDICAL CARE IF:? You have a fever.? You have severe abdominal pain.? You have chest pain.? You have shortness of breath.? You faint.? You have pain, swelling, or redness in your leg.? You have heavy vaginal bleeding with blood clots.MAKE SURE YOU:? Understand these instructions.? Will watch your condition.? Will get help right away if you are not doing well or get worse.This information is not intended to replace advice given to you by your health care provider. Make sure you discuss any questions you have with your health care provider.Document Released: 01/12/2012 Document Revised: 01/28/2014 Document Reviewed: 08/08/2013[employer] Patient Education ?2016 [employer].Viruses or BacteriaWhat?s got you sick?Antibiotics only treat bacterial infections. Viral illnesses cannot be treated with antibiotics. When an antibiotic is not prescribed, ask your healthcare professional for tips on how to relieve symptoms and feel better. Usual CauseIllness Viruses Bacteria Antibiotic NeededCold/Runny Nose NOBronchitis/Chest Cold (in otherwise healthy children and adults) NOWhooping Cough YesFlu NOStrep Throat YesSore Throat (except strep) NOFluid in the middle ear (otitis media with effusion) NOUrinary Tract Infection YesAntibiotics Aren?t Always the Answerwww.cdc.gov/getsmart GETSMARTKnow When Antibiotics Jerod.[place]. 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 Appetite is described as Adequate, and pt. has 100% of meals last night and 100% of breakfast today from the Regular diet ordered. No recent wt. changes nor problems chewing/swallowing or GI issues. Pt. is currently at low nutritional risk. Continue to follow pt. with 75% goal or better from meals served. [facility] Progress Note - Nurseon 10-3 Protein mass conc patient resting in b ed with vistitors at bedside this evening.patient is alert and oriented times four.admits to #5/10 bilateral lower abdominal discomfort which is surgical in origin.pain responds effectively to prescribed pain medication.steri strips are clean dry and intact to bilateral lower lateral abdomen. no active drainage observed.umbilical primipore dressing presents with dry red shadowing also with no active drainage observed.hans pad has scant amount of dried blood present and is replaced.urinary catheter emtied of 1750ml of clear yellow odorless urine.urinary catheter [id number] balloon deflated and catheter removed and tolerated well by patient.patient up to void shortly after removal with 100cc clear light yellow urine plus urine missing collection hat.patient was up to ambulate in mayo this evening. patient completed two full orbits around nursing unit with standby assistance.ate 100% of provided bedtime snack.patient taking po fluids well. iv fluids dicontinued and iv site converted to saline lock.bilateral lower extremity pneumatic calf pumps are inplace. pedal pulses are equal and strong.patient encouraged to cough and deep breath. lung sounds are clear in all nathan.abdomen is flat and symetrical. bowel sounds are hypoactive in all quadrants. admits to passing gas. denies nausea.patient remains afebrile as of this entry.will continue to monitor.[Electronically Signed on: 12/05/2017 22:57 EDT] Luz French[Verified on: 12/05/2017 22:57 EDT] Luz French [facility] Protein mass conc pT. DENIES PAIN MED NEED AND NAUSEA. pT. AMULATES AROUND 2 SOUTH LOOP WITHOUT ISSUES. # STAB WOUNDS NOTED TO ABD WITH STERI STRIPS DRY AND INTACT. UMBILICUS DRESSING CHANGED, NEW PRIMIPORE APPLIED. OLD DRESSING CONTAINED A SMALL AMT. OF DRY BROWN DRAINAGE. pT. REPORTS MINIMAL BROWN DRAINAGE ON HANS PAD. PT. REPORTS URINATING FINE AND PASSING GAS. TITI'S NEGATIVE.[Electronically Signed on: 12/06/2017 14:54 EDT] Karson Alcala RN[Verified on: 12/06/2017 14:54 EDT] Karson Alcala RN [facility] Anesthesia Noteon 12-05-2017 Anesthesia Note Patient: SHAYE GRIMALDO : 52 years Sex: FEMALE : 63Associated Diagnoses: NoneAuthor: Aroldo Rascon MDPreoperative InformationAnesthesia history: Family history. Patient history: No prior anesthesia problems.Review of SystemsConstitutional: Negative.Cardiovascular: No Chest Pain. No SOB.Health StatusAllergies:Allergic Reactions (All)Severity Not DocumentedBactrim- Hives.Iodine- Itching.Nonallergic Reactions (All)Severity Not DocumentedLevoFLOXacin- Spacey feeling.Current medications:Home Medications (3) Activeminocycline 10 mg, PRN, POMultiple Vitamins with Iron oral tablet 1 tab(s), PO, Dailysimvastatin 20 mg oral tablet 20 mg = 1 tab(s), PO, DailyProblem list (past medical history):All ProblemsAbnormal Pap smear of cervix / SNOMED CT 9719536557 / ConfirmedLeft leg DVT / SNOMED CT [id number] / ConfirmedMenstrual problem / SNOMED CT 0772037377 / ConfirmedHyperlipemia / SNOMED CT 70119673 / ConfirmedRectal incontinence / SNOMED CT 725952547 / ConfirmedReynolds syndrome / SNOMED CT 061328125 / ConfirmedRosacea / SNOMED CT 0988267328 / ConfirmedHistoriesFamily History:No family history items have been selected or recorded.Procedure history:History of tonsillectomy and adenoidectomy (851980342).History of laparoscopy (2850486690).Operation on salivary duct (41503494).Excision of sebaceous cyst (915575119).Comments: 13:30 - Adriana Menard RNright armpit and left lateral rib areaLaser vaporization of lesion of cervix (081382470).Arthroscopy of shoulder (228811624).Comments: 13:31 - Adriana Menard RNrightColonoscopy ([id number]).Comments: 13:32 - Adriana Menard RNtimes 2 with normal resultsSocial History Alcohol Assessment Use: Current. 1-2 times per week Tobacco Assessment Never (less than 100 in lifetime) Tobacco Use:. Substance Abuse Assessment Substance use: Never..Social & Psychosocial BdgjjhDrjzgrb91/08/2018 Alcohol Use: Current Frequency: 1-2 times per weekSubstance Abuse11/13/2017 Substance use: UbzfxVzntqat71/08/2018 Smoking tobacco use: Never (less than 100 in l.Physical ExaminationAirway: Mallampati classification: III (soft palate, base of uvula visible). Temporomandibular joint mobility: Good. Mouth: Teeth ( Within normal limits ).Respiratory: Lungs are clear to auscultation.Cardiovascular : Regular rhythm.Neurologic: Alert, Oriented.Review / ManagementLaboratory ResultsPlanAnesthetic Preoperative PlanAnesthesia: General.. Anesthetic plan, risks, benefits, and alternatives discussed with the patient and/or family. Patient verbalized understanding. Informed consent was given. Anesthetic technique: General anesthesia.[Electronically Signed on: 12/05/2017 08:17 EDT] Aroldo Rascon MD[Verified on: 12/05/2017 08:17 EDT] Aroldo Rascon MD [facility] Anesthesia Note Patient: SHAYE GRIMALDO : 52 years Sex: FEMALE : 63Associated Diagnoses: NoneAuthor: Aroldo Rascon MDPostoperative InformationAnesthetic utilized: General.AssessmentAnestheti c outcomeNo anesthetic complications noted.PlanTransfer/ Discharge: Patient can be discharged from PACU when criteria met.Condition good.[Electronically Signed on: 12/05/2017 11:51 EDT] Aroldo Rascon MD[Verified on: 12/05/2017 11:51 EDT] [facility]con [facility] [facility] Primary Physician: Jeison Newberry DO Finalized Date/Time: 12/05/17 12:16:09 Pt. Name: SHAYE GRIMALDO /Sex: 1965 FEMALE Med Rec #: [id number] Physician: Jeison Newberry DO Financial #: [id number] Pt. Type: Anna Marie Room/Bed: [facility] [place] Admit/Disch: 12/05/17 06:15:51 - Institution: PACU Case Times MAGR Entry 1 In PACU I 12/05/17 11:16:00 Discharge from PACU 12/05/17 12:10:00 I Last Modified By: Sugey Casey RN 12/05/17 12:16:07 Finalized By: Sugey Casey RN Document Signatures Signed By: Sugey Casey RN 12/05/17 12:16 Normal [facility] Operative Report - Surgeon/P malathi 12-05-2017 Operative Report - Surgeon/Physician DATE OF PROCEDURE: 12/05/17URGEON: Jeison Newberry DOANESTHESIA: General by MARTHA RandallREOPERATIVE DIAGNOSES:1. Pelvic organ prolapse.2. Post menopausal bleeding.3. Recurrent cervical dysplasia.4. Cystocele.POSTOPERATIVE DIAGNOSES:1. Pelvic organ prolapse.2. Post menopausal bleeding.3. Recurrent cervical dysplasia.4. Cystocele.5. Pending pathology.PROCEDURE: Laparoscopic assisted vaginal hysterectomy and bilateralsalpingo-oophorect nikolai.COMPLICATIONS: None.ESTIMATED BLOOD LOSS: 100 cc.FLUIDS: Approximately 1500 cc of lactated ringers.URINE OUT: Total is 430 cc at the end of the procedure (300 cc at the end ofthe procedure and 130 cc intraoperatively by straight catheterized) [id number] cc total.FINDINGS:1. Vaginal exam, the cervix is long, closed and middle. The uterus isprocidentia, Stage 2-3.2. Laparoscopic findings, the uterus is normal size and normal appearing;right ovary and right tube are within normal limits but adhesed to the uterusjust under the round ligament. The left ovary is completely adhesed to theleft uterine side wall. The left tube is within normal limits. The bowel iswithin normal limits in appearance. The liver angle is within normal limits.SPECIMENS: Sent to pathology; uterus, tubes and ovaries.PROCEDURE: The patient was taken to the operating room where she was placedin the supine position and given general anesthesia. After adequate generalanesthesia, she was placed into the dorsolithotomy position and was preppedand draped in the normal sterile fashion.Next, a weighted speculum was placed in the patient's vagina and the anterioraspect of the cervix was grasped with a single tooth tenaculum. Next, anAcorn uterine manipulator was advanced into the cervix to provide a means tomanipulate the uterus. The speculum was then removed from the vagina.The bladder as partially full and it was straight catheterized for 130 cc ofclear urine before the beginning of this procedure.Attention was then turned to the patient's abdomen where a 5 mm skin incisionwas made in the infraumbilical fold. The Veress needle was then carefullyintroduced into the peritoneal cavity at a 45 degree angle while tenting theabdominal wall. Intraperitoneal placement was confirmed by the use of awater filled syringe and a drop in the intraabdominal pressure with theinsufflation of CO2 gas. The trocar and sleeve were advanced withoutdifficulty into the abdomen where placement was confirmed by the laparoscope.A pneumoperitoneum was obtained with approximately 2.5 liters of CO2 gas andthe 5 mm trocar and sleeve were advanced without difficulty where placementwas confirmed by the laparoscope. A second skin incision was then made 2 cmabove the pubic symphysis in the right lower quadrant. The second trocar andsleeve (5 mm) was then advanced under direct visualization. A third skinincision was then made approximately 2 cm above the pubic symphysis in theleft lower quadrant. The third trocar and sleeve (5 mm) was then advancedunder direct visualization. A survey of the patient's pelvic and abdomenrevealed the anatomy as discussed under the findings. Next, the atraumaticgrasper was placed through the second trocar site and the right ovary andtube were then grasped, however, the right ovary was attached underneath theround ligament. Slowly but surely the infundibulopelvic ligament wascauterized with the LigaSure, grasped, cauterized and cut. Then the ovarywas a bit more difficult as it was adhesed underneath the round ligamentpartially to the uterus. Slowly traction was placed on the right ovary andthe LigaSure was placed just behind the ovary, clamped, coagulated and cutuntil the ovary could be freed.Attention was then turned to the left ovary which was noted to be completelyadhesed to the lateral uterine wall. The tube, however, was mobile which wasgrasped and the infundibulopelvic ligament was grasped with the LigaSure,coagulated and cut all around the ovary which remained attached to theuterus. Good hemostasis was noted. The instruments were then kept in place.The CO2 was turned off and attention was then turned to the vagina. Theweighted speculum was then placed in the vagina at the cervix. The Acornuterine manipulator were removed. A second single tooth tenaculum was placedin the cervix for traction. The cervix was then injected circumferentiallywith Marcaine 0.25% with epinephrine 20 cc for better hemostasis. The cervixwas then circumferentially electrocauterized with the Bovie and the bladderwas dissected off the pubovesical cervical fascia anteriorly by digitaldissection and the Metzenbaum scissors. The anterior cul-de-sac was enteredsharply. The same procedure was performed posteriorly and the bynyyewvqiuh-wm-opa was entered sharply without difficulty.Next, the LigaSure was placed over the uterosacral ligaments on either sideand these were then grasped, coagulated and cut with the LigaSure.Hemostasis was assured. The cardinal ligaments were then clamped on bothsides, transected and suture ligated. The uterine arteries and the broadligament were then serially clamped with the LigaSure, coagulated and cut onboth sides. Excellent hemostasis was noted. The remaining tissue was thenLigaSured, coagulated and cut freeing the uterus, ovaries and tubes. Theperitoneum and the vaginal cuff angle were closed in a single layer with 0Vicryl. Each angle was closed with dbttpj-kc-vapow stitches of 0 Vicryl andtransfixed to the ipsilateral, cardinal and uterosacral ligaments. Theremainder of the vaginal cuff was closed with syiggu-lo-cvtsa stitches andinterlocking stitches of 0 Vicryl. After checking the cuff angles and thevaginal cuff in general, excellent hemostasis was noted. Re-examination ofthe patient noted the cystocele that had previously been present was nolonger present most likely secondary to the shortening of the vagina by theprocedure. The decision was made not to repair the cystocele as it hadresolved. A Clayton catheter was then placed in the urethra and 300 cc ofadditional urine was output; totally 430 cc for the case.Attention was then turned back to the laparoscopy sites. The CO2 was turnedback on and the laparoscope was placed back into the infraumbilical trocarand small oozing was noted at the vaginal apex and the spatula,electrocautery and the LigaSure were used to contact the slightly oozingtissue which was then grasped, coagulated with the spatula until excellenthemostasis was noted. The Tom social media assistant was then used to clean out fyyahh-ar-bva area and the vaginal cuff angle noting excellent hemostasis exceptfor 2 additional spots that were electrocauterized with the spatula. TheStryker social media assistant was used again to clear out the area and suctioned. Thepatient was taken out of Trendelenburg a little bit and then hemostasis wasnoted. The instruments were then removed from the patient's abdomen and theincisions were repaired with 4-0 Vicryl in a subcuticular manner.Re-examination of the vagina noted the vaginal apex was hemostatic and theFoley catheter was in place. The patient tolerated the procedure well.Sponge, lap, needle and instrument counts were correct x2. The patient didreceive Ancef 2 grams IV piggyback just prior to the beginning of theprocedure. The patient was taken to the recovery room, awake and in stablecondition.ZAKI Duong #: [id number]: 12/05/2017T: 12/05/2017[Electronically Signed on: 12/05/2017 13:29 EDT] Jeison Newberry DO, D.O.[Verified on: 12/05/2017 13:29 EDT] Jeison Newberry DO, D.O.[Transcribed on: 12/05/2017 12:01 EDT]U [facility] Test Urine 1on U Preg Negative [facility] Comment on above: Order Comment: pre o p Performed By: #### 3 [id number] ####[facility] (DEFAULT)[address] [place] [id number] U Preg Internal Control Pass [facility] Comment on above: Order Comment: pre o p Performed By: #### 3 [id number] ####[facility] (DEFAULT)[address] [place] [id number] Progress Note - Nurseon 11-08 Protein mass conc Taking ice chips wit hout problem. Ambulated within confines of the room, slighlty lightheaded. Preferred to sit in chair at bedside instead of going to bed. Chris. well. Visitors at bedside. Umbilical drsg. is dry et intact wih drainage present, no change since arrival.[Electronically Signed on: 12/05/2017 15:47 EDT] Tati Tejeda RN[Verified on: 12/05/2017 15:47 EDT] Tati Tejeda RN [facility] Protein mass conc Pt. has done well si nce since return from surgery. Taking fluids, appetite is fair. Drsg. on umbilical area is intact, small amt. of drng noted. Steri-strips dry et intact on lower abd.. Scant amt. of pink, vag. drng. Ambulated in hallway this pm et tolerated well. Urine is clear, light yellow. Indwelling urinary catheter in intact.[Electronically Signed on: 12/05/2017 19:08 EDT] Tati Tejeda RN[Verified on: 12/05/2017 19:08 EDT] Tati Tejeda RN [facility] Progress Note - Nurseon 11-07 Protein mass conc Pre op call complete , spoke with [facility]. Confirmed time of arrival for 0630 on 12/05/17[Electronically Signed on: 12/04/2017 09:40 EDT] Adriana Menard RN[Verified on: 12/04/2017 09:40 EDT] Adriana Menard RN [facility] Coding Summaryon 11-21-2017 Coding Summary CODING DATE: 018 [facility] STATUS: Home PAYOR: Commercial Insurance APC DESCRIPTION 5521 Level 1 Imaging without Contrast ADMIT DX: REASON FOR VISIT DX: N81.4 Uterovaginal prolapse, unspecified FINAL DX: PRINCIPAL: Z01.810 Encounter for preprocedural cardiovascular examination SECONDARY: Z01.812 Encounter for preprocedural laboratory examination 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, unspecified N81.4 Uterovaginal prolapse, unspecified Z87.891 Personal history of nicotine dependence PYMT PROC APC STAT DESCRIPTION DOCTOR NAME DATE NOTE: The code number assigned matches the documented diagnosis and / or procedure in the patient's chart. However, the narrative phrase printed from the coding software may appear abbreviated, or result in slightly different terminology. Coded By: López Olsen Date Saved: 11/21/2017 01:09 pm [facility] Provider Orderson 11-15-2017 Protein mass conc [id number] [facility] .Auto Diff 1on 11-13-2017 Auto Baso % 0.8 % Normal 0.2-2.0 [facility] Comment on above: Performed By: #### 7 [id number], [id number] ####[facility] (DEFAULT)[address] [place] [address] Auto [place] % 10 % Normal 1-12 [facility] Comment on above: Performed By: #### 7 [id number], [id number] ####[facility] (DEFAULT)[address] [place] [address] Auto Neut % 57 % Normal 44-88 [facility] Comment on above: Performed By: #### 7 [id number], [id number] ####[facility] (DEFAULT)[address] [place] [address] Baso Abs# 0.1 x10 Normal 0.0-0.2 [facility] Comment on above: Performed By: #### 7 [id number], [id number] ####[facility] (DEFAULT)[address] [place] [address] Eos Abs# 0.2 x10 Normal 0.0-0.4 [facility] Comment on above: Performed By: #### 7 [id number], [id number] ####[facility] (DEFAULT)[address] [place] [address] Eosinophils/100 WBC Auto (Bld) 3.5 % Normal 0.9-4.0 [facility] Comment on above: Performed By: #### 7 [id number], [id number] ####[facility] (DEFAULT)[address] [place] [address] Lymphocytes Auto #/vol (Bld) 2.0 x10 Normal 1.3-2.9 [facility] Comment on above: Performed By: #### 7 [id number], [id number] ####[facility] (DEFAULT)[address] [place] [address]91 Lymphocytes/100 WBC Auto (Bld) 28 % Normal 14-48 [facility] Comment on above: Performed By: #### 7 [id number], [id number] ####[facility] (DEFAULT)[address] [place] [address] [place] Abs# 0.7 x10 Normal 0.0-0.8 [facility] Comment on above: Performed By: #### 7 [id number], [id number] ####[facility] (DEFAULT)[address] [place] [address] Neut Abs# 4.1 x10 Normal 1.5-9.2 [facility] Comment on above: Performed By: #### 7 [id number], [id number] ####[facility] (DEFAULT)[address] [place] [address] CBC w/ Auto Diffon 8 Erythrocyte distribution width Auto Ratio (RBC) 12.8 % Normal 11.5-15.0 [facility] Comment on above: Performed By: #### 7 [id number], [id number] ####[facility] (DEFAULT)[address] [place] [address] Hematocrit Auto Volume Fraction (Bld) 42.0 % High 33.7-40.4 [facility] Comment on above: Performed By: #### 7 [id number], [id number] ####[facility] (DEFAULT)[address] [place] [address] Hemoglobin mass conc (Bld) 14.2 g/dL Normal 11.3-15.9 [facility] Comment on above: Performed By: #### 7 [id number], [id number] ####[facility] (DEFAULT)[address] [place] [address] Man Diff? Auto Normal [facility] Comment on above: Performed By: #### 7 [id number], [id number] ####[facility] (DEFAULT)[address] [place] [address] MCH Auto Entitic mass (RBC) 31 pg Normal 24-34 [facility] Comment on above: Performed By: #### 7 [id number], [id number] ####[facility] (DEFAULT)[address] [place] [address] MCHC Auto mass conc (RBC) 34 g/dL Normal 26-37 [facility] Comment on above: Performed By: #### 7 [id number], [id number] ####[facility] (DEFAULT)[address] [place] [address] MCV Auto Entitic volume (RBC) 93 fL Normal 81-100 [facility] Comment on above: Performed By: #### 7 [id number], [id number] ####[facility] (DEFAULT)[address] [place] [address] Platelet mean volume Auto Entitic volume (Bld) 10.7 fL High 6.3-10.2 [facility] Comment on above: Performed By: #### 7 [id number], [id number] ####[facility] (DEFAULT)[address] [place] [address] Platelets Auto #/vol (Bld) 244 x10 Normal 138-427 [facility] Comment on above: Performed By: #### 7 [id number], [id number] ####[facility] (DEFAULT)[address] [place] [address] RBC Auto #/vol (Bld) 4.53 x10 Normal 3.70-5.30 [facility] Comment on above: Performed By: #### 7 [id number], [id number] ####[facility] (DEFAULT)[address] [place] [address] WBC Auto #/vol (Bld) 7.1 x10 Invalid Interpretation Code [facility] Comment on above: Performed By: #### 7 [id number], [id number] ####[facility] (DEFAULT)[address] [place] [address] XR Chest 2 Viewson 8 XR Chest 2 Views CHEST TWO VIEWSCLINI ODESSA DATA: Required preoperative chest clearance prior to hysterectomy,remote chronic smoking history.PA and lateral views of the chest were obtained. Heart and mediastinalcontours are unremarkable in appearance. No acute infiltrate orconsolidations are seen. There is slight convexity of the dorsal spine to theright.IMPRESSION: NO ACUTE PROCESS SEEN IN THE CHEST.Sea Jensen MDJOGrisel #: [id number]: 11/13/2017T: 11/13/2017 Final Dictated by: Sea Jensen MD SDictated DT/TM: 11/13/17 4:15Signed (Electronic Signature): Sea Jensen MD 11/13/17 4:48 pmTechnologist: Francisca BOO [facility] Social History Date Type Detail Facility Sex Assigned At [facility] Other Vital Signs Date Time Vital Sign Value Performing Clinician Faci lity 12-16-2020 16:45-0500 Body height 154.94 cm Sonya Palomo Other [facility] Other 12-16-2020 16:45-0500 Body mass index (BMI) [Ratio] 22.67 kg/m2 Sonya Palomo Other [facility] Other 12-16-2020 16:45-0500 Body weight 54.43 kg Sonya Palomo Other [facility] Other Evaluation note 12-16-2020 Note Date & Type Note Facility 12-16-2020 Evaluation note Encounter Date Diagnosis Assessment Notes Dec, Fecal incontinence (ICD-10 - R15.9) Dec, Irritable bowel syndrome with diarrhea (ICD-10 - K58.0) Dec, LLQ abdominal pain (ICD-10 - R10.32) Dec, Other START PREDNISONE 20 MG DAILY FOR 14 DAYS PT TO CALL BACK UP PLAN WILL BE TRIAL OF ZENPEP OR CREON [facility] Other Evaluation note Note Date & Type Note Facility Evaluation note No Information [facility] Other History general Narrative - Reported Note Date & Type Note Facility History general Narrative - Reported Type Medical History hyperlipidemia Surgical History tonsillectomy Surgical History laparoscopy Surgical History carpal tunnel release Surgical History shoulder surgery Surgical History hysterectomy Surgical History cyst removal Hospitalization History SEE ABOVE [facility] Other Summary Purpose Family History No Family History Records FoundNo Family History Records FoundNo Family History Records FoundNo Family History Records FoundNo Family History Records Found Advance Directives No Advanced Directives Records FoundNo Advanced Directives Records FoundNo Advanced Directives Records FoundNo Advanced Directives Records FoundNo Advanced Directives Records Found Hospital Course Note ADMIT DATE: 12/05/2017DISCHA RGE DATE: 12/06/2017NARRATIVE SUMMARY: The patient is a 52-year-old single white female gravida5, para 3, 0-2-3. She came in with a chief complaint of postmenopausalbleeding and she was found to have pelvic organ prolapse and a recurrentcervical dysplasia with a cystocele. She came in for a laparoscopic assistedvaginal hysterectomy, bilateral salpingo-oophorectomy which was performedafter the hysterectomy and reassessment of the cystocele demonstrated no needfor cystocele repair. Therefore, no anterior colporrhaphy with Kellyplication was noted. She is postop day #1. She is ambulating and she istolerating a diet. Her pain level is under control and she desires to gohome.FINAL DIAGNOSES:1. Pelvic organ prolapse.2. Postmenopausal bleeding.3. Recurrent cervical dysplasia.POSTOP DIAGNOSES:1. Pelvic organ prolapse.2. Postmenopausal bleeding.3. Recurrent cervical dysplasia.4. Pending pathology.PROCEDURE: Laparoscopic assisted vaginal hysterectomy, bilateralsalping (more content not included)... Note [facility] 2SOUTHCl inical Discharge SummaryPERSON INFORMATIONName SHAYE GRIMALDO Age 52 Years [birth year]Sex FEMALE Language Dominican PCP Flakito GEORGE Status Single Med Service ObservationN [id number] Acct# Arrival 12/05/17 06:15:51Visit Reason SURGERY - LAVH WITH BSO Acuity LOSAddress[address] [id number]:PROVIDER INFORMATIONVITALS INFORMATIONVital Sign Triage LatestTemp Oral 36.6 DegC 37 DegCTemp TemporalTemp IntravascularTemp AxillaryTemp Vuwpxh05 Sat 100 % 99 %Respiratory Rate 16 br/min 18 br/minPeripheral Pulse Rate 74 bpm 82 bpmApical Heart Rate 86 bpm 78 bpmBlood Pressure 123 mmHg / 82 mmHg 107 mmHg / 67 mmHgComment:MEDICAL INFORMATIONAllergy Info:Allergies Bactrim (Hives) levoFLOXacin (spacey feeling) iodine (Itching)Prescriptions Given:Prescription Displayacetaminophen-oxycodone (Percocet 5/325 oral tablet) 1 tab(s), PO, q6hr (int), Instructions: may take 1 or 2 tablets not to exceed 12 tablets/day, PRN: for pain, # 20 t (more content not included)... Additional Source Comments INFORMATION SOURCE (unrecogn ized section and content) DATE CREATED AUTHOR 02/12/2018 [facility] DATE CREATED AUTHOR AUTHOR'S ORGANIZ ATION 11/09/2020 [facility] DATE CREATED AUTHOR AUTHOR'S ORGANIZ ATION 04/29/2021 [facility] DATE CREATED AUTHOR AUTHOR'S ORGANIZ ATION 01/22/2023 [facility] EPIC DATE CREATED AUTHOR AUTHOR'S ORGANIZ ATION 05/23/2023 [facility] EPIC REASON FOR VISIT (unrecogniz ed section and content) PATIENT HERE FOR FOLLOW UP C OLONOSCOPY, SHE DOES NOT FEEL DICYCLOMINE IS WORKINGClinical Acute IllnessClinical Acute IllnessZENPEPNo InformationREFILLREFILL FOR RECORDS PERTAINING TO PATIENTS WHO ARE OR HAVE BEEN ENROLLED IN A CHEMICAL DEPENDENCY/SUBSTANCEABUSE PROGRAM, SOME INFORMATION MAY BE OMITTED. This clinical summary was aggregated from multiple sources. Caution should be exercised in using it in the provision of clinical care. This summary normalizes information from multiple sources, and as a consequence, information in this document may materially change the coding, format and clinical context of patient data. In addition, data may be omitted in some cases. CLINICAL DECISIONS SHOULD BE BASED ON THE PRIMARY CLINICAL RECORDS. [employer] provides no warranty or guarantee of the accuracy or completeness of information in this document.
[2023-07-07 08:30] LABS: Basophils Absolute Auto 0.1 10^3/uL (0.0-0.1); Basophils Percent Auto 1.1 % (0.2-2.0); Eosinophils Absolute Auto 0.3 10^3/uL (0.0-0.7); Eosinophils Percent Auto 4.6 % (0.9-7.0); Hematocrit 41.5 % (36.0-48.0); Immature Granulocytes Abs Auto 0.01 10^3/uL (0.00-0.03); Immature Granulocytes Pct Auto 0.2 % (0.0-0.5); Lymphocytes Absolute Auto 1.4 10^3/uL (1.2-3.8); Lymphocytes Percent Auto 26.4 % (20.5-60.0); Mean Corpuscular HGB Conc 31.3 g/dL (29.9-35.2); Mean Corpuscular Hemoglobin 29.5 pg (26.7-34.0); Mean Corpuscular Volume 94.1 fL (81.0-99.0); Mean Platelet Volume 10.4 fL (9.5-13.5); Monocytes Absolute Auto 0.5 10^3/uL (0.3-0.8); Monocytes Percent Auto 9.8 % (1.7-12.0); Neutrophils Absolute Auto 3.1 10^3/uL (1.4-6.5); Neutrophils Percent Auto 57.9 % (43.0-75.0); Platelet Count 247 10^3/uL (150-450); Red Blood Count 4.41 10^6/uL (4.20-5.40); Red Cell Distribution Width 12.8 % (11.0-15.0); White Blood Count 5.4 10^3/uL (4.0-11.0)
[2023-07-07 09:03] LABS: Alanine Aminotransferase 21 U/L (14-59); Albumin Globulin Ratio 1.1; Albumin Level 3.5 g/dL (3.4-5.0); Alkaline Phosphatase 117 U/L (46-116); Anion Gap 10.9; Aspartate Amino Transferase 14 U/L (15-37); BUN Creatinine Ratio 19.8; Bilirubin Total 0.5 mg/dL (0.2-1.0); Calcium 8.7 mg/dL (8.5-10.1); Carbon Dioxide 31.4 mmol/L (21.0-32.0); Chloride 105 mmol/L (98-107); Chol HDL Ratio 4.5; Cholesterol 286 mg/dL (<=200); Estimated GFR (African America >60 (>=60); Estimated GFR (Non-African Ame >60 (>=60); Free T3 2.62 pg/mL (2.18-3.98); Globulin 3.3 g/dL; Glucose 108 mg/dL (74-106); HDL Cholesterol 63 mg/dL (40-60); Potassium 4.3 mmol/L (3.5-5.1); Sodium 143 mmol/L (136-145); Thyroid Stimulating Hormone 2.703 uIU/mL (0.358-3.740); Total Protein 6.8 g/dL (6.4-8.2); Triglycerides 103 mg/dL (<=150); VLDL CHOLESTEROL 20.6 mg/dL
[2023-07-07 09:27] LABS: Estimated Average Glucose 114 mg/dL; Glycohemoglobin A1C 5.6 % (4.5-6.2)
== END 2023-07-07 07:47 | disposition home or self-care (01) ==
LOC: LAB 07:48
PROVIDERS: PCP Family Medicine; Visit Provider Family Medicine
DX: Z00.00 Encounter for general adult medical examination without abnormal findings (principal)
CPT/HCPCS: 36415; 80053; 80061; 82306; 83036; 84436; 84443; 84481; 85025